=== PATIENT | female | born 1930 | race African-American/Black ===

== ENCOUNTER 2016-10-30 18:08 | Inpatient (IN) | payer OTHER ==
[2016-10-30] MEDS ORDERED: PROTONIX IV ONE (18:59)
[2016-10-30] MEDS ORDERED: SODIUM CHLORIDE 0.9% INJ ONE (18:59)
[2016-10-30] MEDS ORDERED: NS 500 ML IV ONE (18:59)
[2016-10-30] MEDS ORDERED: DILAUDID IV ONE (19:00)
[2016-10-30] MEDS ORDERED: ZOFRAN IV ONE (19:00)
--- NOTE | 2016-10-30 19:08 | PROVIDER DOCUMENTATION ---
HPI-Abdominal Pain/GI Problem - General Chief Complaint: Abdominal Pain Stated Complaint: ABD PAIN Time Seen by Provider: 10/30/16 18:51 Source: patient Allergies/Adverse Reactions: Patient Allergies Allergy/AdvReac Type Severity Reaction Status Date / Time No Known Allergies Allergy Verified 07/29/15 12:42 Home Medications: Home Medication List Medication Instructions Recorded Confirmed Last Taken Type Amlodipine [Norvasc] 10 mg PO QAM 08/13/12 10/30/16 10/30/16 08:00 History Aspirin 325 mg PO WLUNCH 08/13/12 10/30/16 10/30/16 11:00 History Calcium Citrate/Vitamin D 500 each PO WLUNCH 08/13/12 10/30/16 10/30/16 11:00 History [Citracal + D] Carvedilol [Coreg] 25 mg PO BID 08/13/12 10/30/16 10/30/16 08:00 History Meloxicam [Mobic] 15 mg PO WLUNCH 08/13/12 10/30/16 10/30/16 History Metformin [Glucophage] 1,000 mg PO WLUNCH 08/13/12 10/30/16 10/30/16 12:00 History Glipizide E.r. [Glucotrol Xl] 10 mg PO QAM 10/05/14 10/30/16 10/30/16 08:00 History Omeprazole [Prilosec] 20 mg PO QAM 10/05/14 10/30/16 10/30/16 08:00 History ATORVAstatin [Lipitor] 40 mg PO QHS 07/27/15 10/30/16 10/29/16 20:00 History Hydralazine [Apresoline] 50 mg PO TID 07/27/15 10/30/16 10/30/16 08:00 History BENAZEpril [Lotensin] 20 mg PO DAILY #30 tablet 08/04/15 10/30/16 10/30/16 08: 00 Rx Hydromorphone [Dilaudid] 2 mg PO Q4H PRN PRN #45 tablet 08/04/15 10/30/16 08:00 Rx - History of Present Illness-ABD Nature of Presenting Problems: 86 Y/O F presents to ED with ABD pain. Pt has a hx of dementia but fully functional. Pt states lower ABD pain for the past 3 days with increased constant RLQ this morning. Denies N/V. States BM today with a hx of constipation , and hx of . Abdominal Pain Onset Location: reports: RLQ, LLQ Pain Radiation: reports: no radiation Quality of Pain: reports: aching Severity in ED: reports: moderate Onset/Duration: reports: this morning Timing: reports: still present Associated Symptoms: reports: constipation. denies: diaphoresis, dizziness, EENT symptoms, fever/chills, nausea, syncope, vomiting Last BM: this morning Dark Stools Present?: reports: none noticed Rectal Pain: reports: none Review of Systems - Adult - REVIEW OF SYSTEMS - ADULT Constitutional: denies: chills, fever Eyes: reports: no symptoms reported Ears, Nose, Mouth & Throat: reports: no symptoms reported Cardiovascular: reports: no symptoms reported Respiratory: denies: cough, shortness of breath Gastrointestinal: reports: abdominal pain, constipation. denies: diarrhea, nausea, vomiting Genitourinary: reports: no symptoms reported Musculoskeletal: reports: no symptoms reported Integumentary: reports: no symptoms reported Neurological: reports: no symptoms reported Psychiatric: reports: no symptoms reported Endocrine: reports: no symptoms reported Hematologic/Lymphatic: reports: no symptoms reported Allergic/Immunologic: reports: no symptoms reported All Other Systems: Reviewed and Negative Past History - Adult - PAST MEDICAL HISTORY-ADULT Review of Records: reports: Old Records Reviewed, Nursing Assessment Review, Medications Reviewed, Social history reviewed & non-contributory. Cardiovascular: reports: cardiac disease, HTN, hyperlipidemia Respiratory: reports: COPD Endocrine/Immune: reports: Diabetes - PRIOR SURGERIES/PROCEDURES Surgical/Procedure History: reports: none - IMMUNIZATION STATUS Childhood Immunizations: See Nurse Assessment Flu Vaccine: See Nurse Assessment - SOCIAL HISTORY Smoking: cigarettes, less than 1 pack/day Substance Use: none/never Physical Exam-General - CONSTITUTIONAL General Appearance: alert, no apparent distress, obese - EYES Eyes: PERRL/EOMI, pink conjunctivae, fundi clear, no AV nicking - HEAD, EARS, NOSE, MOUTH & THROAT HENMT: normocephalic/atraumatic, moist mucous membranes, normal ENT inspection, TMs normal, pharynx normal - NECK Neck: non-tender, full range of motion, supple - RESPIRATORY Respiratory: chest non-tender, lungs clear, normal breath sounds - CARDIOVASCULAR Cardiovascular: normal peripheral pulses, regular rate, rhythm - GASTROINTESTINAL (ABDOMEN) Abdominal Exam: guarding (RLQ), tenderness (RLQ,LLQ), other (fullness LLQ) - MUSCULOSKELETAL Back Exam: normal inspection, no CVA tenderness, no vertebral tenderness Extremity: normal range of motion, non-tender, normal gait - SKIN Integumentary: normal color, normal turgor, warm/dry - NEUROLOGIC Neurologic: sas bi developer II-XII nml as tested - PSYCHIATRIC Psych/Mental Status: normal mood/affect Progress - PLAN OF CARE/RESULTS Progress/Plan/Lab Results: Laboratory Tests 10/30/16 10/30/16 10/30/16 20:00 20:00 20:00 WBC 5.66 RBC 4.38 Hgb 12.7 Hct 36.8 L MCV 84.0 MCH 29.0 MCHC 34.5 RDW Std Deviation 12.7 Plt Count 171 MPV 10.7 H Immature Gran % (Auto) 0.0 Neut % (Auto) 71.7 Lymph % (Auto) 14.5 L Lipscomb % (Auto) 10.6 H Eos % (Auto) 2.8 Baso % (Auto) 0.4 Immature Gran # (Auto) 0.00 Neut # (Auto) 4.06 Lymph # (Auto) 0.82 L Lipscomb # (Auto) 0.60 H Eos # (Auto) 0.16 Baso # (Auto) 0.02 Sodium 131 L Potassium 5.3 H Chloride 92 L Carbon Dioxide 23 L Anion Gap 16 BUN 15 Creatinine 1.2 H Estimated GFR/1.73 m2 52 BUN/Creatinine Ratio 13 Glucose 321 H POC Glucose Calculated Osmolality 276 Calcium 8.5 L Total Bilirubin 0.65 AST 22 ALT 12 Alkaline Phosphatase 107 H Troponin T < 0.010 Total Protein 6.6 Albumin 3.4 L Globulin 3.2 Albumin/Globulin Ratio 1.1 Amylase 60 Lipase 151 H Urine Source Urine Color Urine Turbidity Urine pH Ur Specific [place]uff Urine Protein Ur Glucose (Stick) Ur Ketones (Stick) Urine Blood Urine Nitrite Urine Bilirubin Urobilinogen Dipstick Urine Leukocytes Urine WBC (Auto) Urine RBC (Auto) U Epithel Cells (Auto) Urine Bacteria (Auto) 10/30/16 10/30/16 20:20 21:04 WBC RBC Hgb Hct MCV MCH MCHC RDW Std Deviation Plt Count MPV Immature Gran % (Auto) Neut % (Auto) Lymph % (Auto) Lipscomb % (Auto) Eos % (Auto) Baso % (Auto) Immature Gran # (Auto) Neut # (Auto) Lymph # (Auto) Lipscomb # (Auto) Eos # (Auto) Baso # (Auto) Sodium Potassium Chloride Carbon Dioxide Anion Gap BUN Creatinine Estimated GFR/1.73 m2 BUN/Creatinine Ratio Glucose POC Glucose 250 H Calculated Osmolality Calcium Total Bilirubin AST ALT Alkaline Phosphatase Troponin T Total Protein Albumin Globulin Albumin/Globulin Ratio Amylase Lipase Urine Source CLEAN CATCH Urine Color YELLOW Urine Turbidity CLEAR Urine pH 5.0 Ur Specific [place] 1.022 Urine Protein 30 A Ur Glucose (Stick) >1000 A Ur Ketones (Stick) 40 A Urine Blood NEGATIVE Urine Nitrite NEGATIVE Urine Bilirubin NEGATIVE Urobilinogen Dipstick NORMAL Urine Leukocytes NEGATIVE Urine WBC (Auto) <10 Urine RBC (Auto) <10 U Epithel Cells (Auto) <10 Urine Bacteria (Auto) NEGATIVE Orders Category Date Time Status Finger Stick Blood Sugar (ED) DIRECTED Care 10/30/16 18:58 Active Saline Loc DIRECTED Care 10/30/16 18:[address] ABD/PELVIS W/ IV CONT ONLY [CT] Stat Exams 10/30/16 18:58 Taken FLAT/UPRIGHT ABD/1 VIEW CHEST [RAD] Stat Exams 10/30/16 18:51 Taken AMYLASE [CHEM] Stat Lab 10/30/16 20:00 Completed CBC WITH ELECTRONIC DIFF [HEME] Stat Lab 10/30/16 20:00 Completed COMPREHENSIVE METABOLIC PANEL [CHEM] Stat Lab 10/30/16 20:00 Completed LIPASE [CHEM] Stat Lab 10/30/16 20:00 Completed TROPONIN T Stat Lab 10/30/16 20:00 Completed URINALYSIS [URINALYSIS] Stat Lab 10/30/16 21:04 Completed 0.9% Sodium Chloride Inj [Ns] 500 ml Med 10/30/16 18:59 Active IV 250 mls/hr Hydromorphone [Dilaudid] Med 10/30/16 19:00 Discontinued 0.5 mg IV NOW ONE Ondansetron [Zofran] Med 10/30/16 19:00 Discontinued 4 mg IV NOW ONE Pantoprazole [Protonix] Med 10/30/16 18:59 Discontinued 40 mg IV NOW ONE Sodium Chloride 0.9% Med 10/30/16 18:59 Discontinued 10 ml INJ NOW ONE EKG [EKG] Stat Ther 10/30/16 18:58 Ordered Vital Signs - 24 hr 10/30/16 10/30/16 18:47 20:40 Temperature 98.7 F Pulse Rate 95 H 77 Respiratory 20 14 Rate Blood Pressure 135/105 188/85 O2 Sat by Pulse 100 100 Oximetry - EKG 1 Time of EKG reading by physician:: 20:23 EKG Read and Signed by:: Corky Fierro EKG Interpretation (*Must complete 3 of following elements*): Abnormal Rate: 76 Rhythm: SR with premature atrial complexes Comments: Abnormal ECG - XRAY 1 XRAY Study: Chest Impression: Normal XRAY Interpretation: NAD 2 XRAY Study: Abdomen Impression: Abnormal XRAY Interpretation: Nonspecific increase constipation - CT/MRI 1 CT Study: Abdomen, Pelvis Impression: Abnormal (diffuse pancreatitis, severe constipation worst at cecum, normal appendix) CT Results: 2.6cm pancreatic head mass highly concerning for pancreatic cancer - CONSULTS/PCP/HOSPITALIST Notification #1 *Consult/PCP/Hospitalist*: Time Discussed: 21:48 Reason/Comments: Plan of Care #2 Consult: Time Discussed: 22:09 Reason/Comments: Admit Consult Disposition: Admit (Admit Accepted) Departure - Departure Time of Disposition Order: 21:46 DIAGNOSIS: Abdominal pain, Pancreatitis, Pancreatic mass Disposition: ADMITTED INPATIENT 09 Certified Medical Emergency: Emergent Condition: Stable Additional Instructions: ED Follow Up Instructions: You have been treated by a care provider in the Emergency Department. These instructions are being provided to you so you can have an understanding of how to care for yourself upon discharge. Upon discharge from the Emergency Department, you are responsible for making arrangements for follow-up care by a physician of your choice. Take all prescribed medications as directed. Return to the Emergency Department immediately for any new or worsening symptoms. You may call the Physician Referral phone number at [phone] to obtain a list of Physicians who are taking new patients. Referrals: None,PCP [Primary Care Provider] - Attestation - Scribe Verification/Attestation Scribe:: Claudette Castanon Acting as Scribe for:: Corky Fierro Scribe documention review:: This chart was documented by a scribe and accurately reflects the service the provider performed and the decisions made by the provider.
[2016-10-30 20:30] LABS: MANUAL DIFF NEEDED? NO
[2016-10-30 20:31] LABS: BASO% 0.4 % (0.0-0.8); EOS# 0.16 X1000 (0.0-0.7); EOS% 2.8 % (0.0-10.0); HEMATOCRIT 36.8 % (37.0-47.0); HEMOGLOBIN 12.7 g/dL (12.0-16.0); LYMPH# 0.82 X1000 (1.2-3.4); LYMPH% 14.5 % (20.5-51.1); MCHC 34.5 g/dL (33-37); MONO% 10.6 % (1.7-9.3); MPV 10.7 FL (7.4-10.4); NEUT% 71.7 % (42.2-75.2); PLT 171 X1000 (130-400); RBC 4.38 XMIL (4.2-5.4)
[2016-10-30 20:59] LABS: ALBUMIN 3.4 g/dL (3.5-5.0); CALCIUM 8.5 mg/dL (8.8-10.2); POTASSIUM 5.3 mmol/L (3.5-5.1); TOTAL BILIRUBIN 0.65 mg/dL (0.20-1.00); TOTAL PROTEIN 6.6 g/dL (6.3-8.3)
[2016-10-30 21:14] LABS: URINE MICRO REVIEW NEEDED? NO; URINE SOURCE CLEAN CATCH
[2016-10-30 21:21] LABS: BILIRUBIN URINE NEGATIVE (NEGATIVE); BLOOD URINE NEGATIVE (NEGATIVE); COLOR YELLOW; GLUCOSE URINE >1000 mg/dL (NEGATIVE); LEUKOCYTES URINE NEGATIVE (NEGATIVE); NITRITE URINE NEGATIVE (NEGATIVE); PROTEIN URINE 30 mg/dL (NEGATIVE); SP GRAVITY URINE 1.022; TURBIDITY URINE CLEAR (CLEAR); UROBILINOGEN URINE NORMAL (NORMAL)
[2016-10-30 21:22] LABS: UR EPITHELIAL CELLS <10 /HPF (<10); URINE BACTERIA NEGATIVE /HPF; URINE RBC <10 /HPF (<10); URINE WBC <10 /HPF (<10)
[2016-10-31] MEDS: NS 1,000 ML IV SCH ×3 (01:40→21:26)
--- NOTE | 2016-10-31 04:52 | HISTORY AND PHYSICAL ---
PRIMARY CARE PHYSICIAN: CHIEF COMPLAINT: Abdominal pain x1 day. HISTORY OF PRESENTING ILLNESS: An 86-year-old female with a history of diabetes mellitus type 2, hypertension, had presented to the emergency department with a 1-day history of having abdominal pain. She describes it as cramping mostly in epigastric region and states that she had some nausea. She states the pain was worsening and subsequently she had come to the emergency department. In the ER, she was evaluated. She had a CAT scan imaging done which did show that she did have pancreatitis and suspected pancreatic mass. Due to her presenting symptoms, it was thought that she would need hospitalization for further management. At the time of my examination, she denied any headaches, vision changes, fevers, chills, chest pain, shortness of breath or any weight changes but complained of abdominal pain, some mild nausea. PAST MEDICAL HISTORY: Include diabetes mellitus type 2, hypertension, hyperlipidemia. PAST SURGICAL HISTORY: None. ALLERGIES: No known drug allergies. CURRENT MEDICATIONS: As listed in MAR. SOCIAL HISTORY: Sixty pack years history of smoking. Admits to social alcohol use. Denies illicit drug use. FAMILY HISTORY: No history of coronary disease. REVIEW OF SYSTEMS: Twelve point systems is as in HPI. Other systems negative. PHYSICAL EXAMINATION: GENERAL: Cooperative, friendly elderly female. She is resting comfortably now. VITAL SIGNS: Temperature 98.7 degrees, pulse 95, respirations 20, blood pressure 135/105. She is saturating 100% on room air. HEENT: Atraumatic, normocephalic. Extraocular movements intact. PERRLA. NECK: No masses. CHEST: Clear to auscultation. CARDIOVASCULAR: Regular rate and rhythm. ABDOMEN: Soft. Positive bowel sounds. EXTREMITIES: No edema. NEUROLOGIC: She is awake, alert, oriented x3. GENITOURINARY: No bladder distention. SKIN: Warm. LABORATORIES AND STUDIES: WBC is 5.66, hemoglobin 12.7, hematocrit 36.8, platelets 171,000. Sodium 131, potassium 5.3, chloride 92, CO2 is 23, BUN is 15, creatinine is 1.2, glucose is 321. Lipase is 151. ASSESSMENT: An 86-year-old elderly female with a history of diabetes mellitus type 2 and hypertension presents to emergency department with 1-day history of abdominal pain. She is found to have on imaging a mass at the head of the pancreas and pancreatitis. She will need hospitalization for further management. 1. Acute pancreatitis. 2. Pancreatic mass. 3. Diabetes mellitus type 2. 4. Hypertension. PLAN: 1. We will admit patient to medical floor with telemetry. 2. We will keep patient NPO. Give her adequate pain control and antiemetics. 3. We will consult General Surgery for further evaluation of pancreatic mass. 4. Put patient on sliding scale insulin regimen. Monitor blood glucose. 5. Monitor blood pressure and resume antihypertensive agents. 6. Put patient on DVT prophylaxis with SCDs. 7. We will continue to follow and reassess.
--- NOTE | 2016-10-31 06:47 | Diag Imaging Result Document ---
PROCEDURE NAME: FLAT/UPRIGHT ABD/1 VIEW CHEST - 10/30/2016 FLAT AND UPRIGHT WITH CHEST, THREE VIEWS: FINDINGS: The lungs are well expanded. The heart is not enlarged. No pneumonia. No free air beneath the diaphragm. No bowel obstruction. No organomegaly. There is stool in the proximal colon. IMPRESSION: Mild constipation.
[2016-10-31] MEDS: HUMULIN R SUBQ SCH ×4 (07:01→21:26)
--- NOTE | 2016-10-31 07:35 | EKG Report ---
Test Performed on : 10/30/2016 8:23:11 PM Test Reason : CP Blood Pressure : / mmHG Vent. Rate : 076 BPM Atrial Rate : 076 BPM P-R Int : 144 ms QRS Dur : 076 ms QT Int : 388 ms P-R-T Axes : 079 017 062 degrees QTc Int : 436 ms Sinus rhythm. with premature atrial complexes. T wave abnormality, consider anterior ischemia Abnormal ECG When compared with ECG of 09-NOV-2014 16:36, Nonspecific T wave abnormality, improved in Lateral leads Unconfirmed Result
--- NOTE | 2016-10-31 07:55 | Diag Imaging Result Document ---
PROCEDURE NAME: CT ABD/PELVIS W/ IV CONT ONLY - 10/30/2016 CT ABDOMEN AND PELVIS WITH IV CONTRAST: COMPARISON: 07/29/2015. FINDINGS: There are multiple calcified granulomata in the liver and the spleen. There is inflammatory stranding surrounding the pancreas consistent with acute pancreatitis. There is a low-dense mass in the head of the pancreas measuring 2.6 x 1.9 cm axially that is highly concerning for carcinoma. The gallbladder appears normal. There is nonspecific nodular thickening involving the left adrenal gland that probably represents an adenoma statistically. It measures approximately 1.7 cm in the greatest axial dimension. There are several tiny renal hypodensities that probably represent tiny cysts. No definite lymphadenopathy is appreciated. Patchy stool is seen throughout the colon. The colon is mildly gas distended. There is no obstructive pattern. There is trace free fluid layering in the pelvis. The remainder of the solid viscera of the abdomen and pelvis and the remainder of the GI tract is essentially unremarkable. There are degenerative changes involving the spine and hips but there is nothing to indicate metastatic disease to the skeleton locally. IMPRESSION: 1. Acute pancreatitis. 2. Low-dense mass in the pancreatic head, highly concerning for carcinoma. 3. Other incidental/nonacute findings detailed above. [facility]
--- NOTE | 2016-10-31 11:33 | CONSULTATION ---
DATE OF CONSULTATION: 10/31/2016 REQUESTING PHYSICIAN: Hospitalist service. REASON FOR CONSULT: Concerning pancreatic mass. HISTORY OF PRESENT ILLNESS: This 86-year-old, female with a history diabetes mellitus type 2 and hypertension presented to the emergency department with a 1-day history of abdominal pain which she describes as cramping. She initially told the ER it was in the epigastric region but she is telling me it is more down in the bilateral lower quadrants. She was seen in the emergency department and had a CT scan that showed pancreatitis and a suspected pancreatic mass. She was admitted by the hospitalist service. Now she reports she is feeling somewhat better. Her pain has improved. I was asked to evaluate for the pancreatic mass. She denies any kind of pain like this in the past. PAST MEDICAL HISTORY: 1. Diabetes mellitus, type 2. 2. Hypertension. 3. Hyperlipidemia. PAST SURGICAL HISTORY: None. ALLERGIES: None reported. CURRENT MEDICATIONS: MAR reviewed. SOCIAL HISTORY: Reports smoking and social alcohol. No illicit drugs. FAMILY HISTORY: No major history of major cancers. REVIEW OF SYSTEMS: A full 10 point review of systems obtained, negative as specified in HPI. PHYSICAL EXAMINATION: Vital Signs: Patient is currently afebrile. Her vital signs have been stable. General: No acute distress. Alert and interactive female, looks stated age. HEENT: Normocephalic, atraumatic. Pupils equal, round, reactive to light. Mucous membranes moist. Oropharynx benign. No scleral icterus. Neck: Supple. Trachea midline. Cardiovascular: Regular rate and rhythm. Lungs: Grossly clear. Abdomen: Soft, only minimal tenderness to palpation in the bilateral lower quadrants. No peritonitis. Extremities: Moves all extremities. Neurologic: Grossly intact. Skin: No signs of jaundice. Vascular: All extremities perfused. LABORATORY DATA: CBC reviewed and grossly within normal limits. CMP reviewed. Of note, her alkaline phosphatase is 107. Her lipase is 151, albumin 3.4, creatinine is 1.2. ASSESSMENT/PLAN: An 86-year-old female with and multiple medical comorbidities presenting now with pancreatitis and possible pancreatic head mass. 1. Pancreatic head mass. At this time, I did review her CT scan. There is a question of a pancreatic head mass. At this time, we will order a CA-19-9, and get an MRI of the abdomen with contrast to evaluate this further. She may need actually an endoscopic ultrasound with biopsy to evaluate this further still. At this time given her age she is probably not an ideal candidate for any kind of surgical intervention, which would likely have to be a Whipple but at this time still unsure the etiology of the mass. It could represent even a small pseudocyst developing. She does have pancreatitis and would like to hold off on any surgical intervention. At this time. 2. Multiple medical comorbidities to be managed by the hospitalist service.
--- NOTE | 2016-10-31 13:26 | Diag Imaging Result Document ---
PROCEDURE NAME: MRI ABDOMEN W/WO CONTRAST - 10/31/2016 MRI OF THE ABDOMEN WITH AND WITHOUT IV CONTRAST: COMPARISON: No prior abdominal MRI is available for comparison. FINDINGS: The nodular thickening associated with the left adrenal gland seen on a recent CT exhibits signal dropout on out of phase imaging. This is consistent with an adrenal adenoma. Motion artifact somewhat limits evaluation of the pancreas. However, the known pancreatic head mass seen on a very recent CT is again identified and appears stable. As on CT , it is poorly enhancing. Again, this is suspicious for neoplasm. No hepatic masses can be identified. There are several small renal cysts. There is subtle inflammatory stranding around the pancreas consistent with acute pancreatitis but is more difficult to appreciate on MRI as compared to CT. The remainder of the visualized abdominal viscera and the abdominal segments of the GI tract are essentially unremarkable. IMPRESSION: 1. Pancreatic head mass as described that was also seen on the previous CT. 2. Known acute pancreatitis. 3. Not mentioned above, there is probably a small stone in the gallbladder lumen. However, the gallbladder is unremarkable otherwise. [facility]
[2016-10-31] MEDS ORDERED: NS 250 ML ONE (13:49)
[2016-10-31 13:57] LABS: INR 1.1; PROTIME 11.7 Seconds (9.2-11.7)
[2016-10-31] MEDS: APRESOLINE PO SCH ×3 (14:17→19:41)
[2016-10-31] MEDS: NORVASC PO SCH ×2 (15:29→15:30)
[2016-10-31] MEDS: DILAUDID IV PRN (16:25)
[2016-11-01] MEDS: NS 1,000 ML IV SCH ×3 (02:07→13:29)
[2016-11-01] MEDS: DILAUDID IV PRN ×4 (02:07→21:33)
[2016-11-01 06:11] LABS: MANUAL DIFF NEEDED? NO
[2016-11-01 06:20] LABS: BASO% 0.2 % (0.0-0.8); EOS# 0.18 X1000 (0.0-0.7); EOS% 3.6 % (0.0-10.0); HEMATOCRIT 32.5 % (37.0-47.0); HEMOGLOBIN 10.9 g/dL (12.0-16.0); LYMPH# 0.74 X1000 (1.2-3.4); LYMPH% 14.6 % (20.5-51.1); MCH 28.8 PG (27-31); MCHC 33.5 g/dL (33-37); MONO# 0.62 X1000 (0.11-0.59); MONO% 12.2 % (1.7-9.3); MPV 10.5 FL (7.4-10.4); NEUT% 69.4 % (42.2-75.2); PLT 153 X1000 (130-400); RBC 3.78 XMIL (4.2-5.4)
[2016-11-01 06:40] LABS: AGAP 17; BUN 9 mg/dL (8-22); CALCIUM 7.9 mg/dL (8.8-10.2); CHLORIDE 101 mmol/L (98-107); COSMO 281; POTASSIUM 3.7 mmol/L (3.5-5.1); SODIUM 139 mmol/L (136-145); TCO2 21 mmol/L (25-35)
[2016-11-01] MEDS: HUMULIN R SUBQ SCH ×4 (06:43→21:30)
[2016-11-01] MEDS: APRESOLINE PO SCH ×3 (13:05→17:41)
[2016-11-01] MEDS: NORVASC PO SCH ×2 (13:06→21:29)
--- NOTE | 2016-11-01 15:16 | PROGRESS NOTE ---
DATE: 11/01/2016 SUBJECTIVE: Patient feeling fine. Reports abdominal pain in the epigastric area that is well controlled with medication that she is using here. Denies any headache, nausea, vomiting. OBJECTIVE: Vital Signs: Temperature 98.3 degrees, heart rate 81, respiratory rate 20, blood pressure 204/76, O2 saturation 100% on room air. General Examination: This is a 86-year-old female lying in bed in no acute distress. HEENT: Head is normocephalic, atraumatic. Anicteric sclerae and pale conjunctivae. Mucous membranes moist. Neck: Supple. No JVD noted. No carotid bruits. No lymphadenopathy. No thyromegaly. Cardiovascular: S1, S2 heard. No murmurs, gallops or rubs. Regular rate and rhythm. Respiratory: Clear bilaterally to auscultation. No work of breathing or using accessory muscles. Abdomen: Soft, a little bit tender to palpation in the epigastric area. Extremities: No clubbing, cyanosis, edema. Peripheral pulses present in both legs. Neurological: Patient is alert and oriented x3. Able to move 4 extremities. Cranial nerves 2-12 grossly normal. LABORATORY DATA: White cell count 5.05, hemoglobin 10.9, hematocrit 32.5, platelets 153,000. BMP unremarkable, ALT, AST normal. ASSESSMENT AND PLAN: 1. Pancreatic mass. 2. Diabetes mellitus type 2. 3. Uncontrolled hypertension. Patient was admitted to hospital because of abdominal pain. Workup in the ER revealed a pancreatic mass. Dr. Huizar was consulted for possible surgery for pancreatic cancer but he decided to MRI of the abdomen which confirmed the mass. GI has been consulted but there is no note in the computer yet. We have consulted also Dr. Quin Quintana from Hematology/Oncology regarding further management. At this point we are going to continue pain medications. For hypertension we are going to restart home medications.
--- NOTE | 2016-11-01 17:35 | PROGRESS NOTE ---
DATE: 11/01/2016 The patient is currently lying in bed. She complains of epigastric pain. Her 2 grandsons are present at bedside. She denies any nausea, vomiting. Vital signs: Temperature 98.3 degrees, pulse of 81, respiratory rate 20, blood pressure 204/76, saturating 100% on room air. Body weight of 185 pounds. General Appearance: Moderately nourished, lying in bed, in no acute distress. HEENT: Pale conjunctivae. No icterus. Neck: Supple. Abdomen: Appears no rebound, no guarding. Extremities: No cyanosis, clubbing. Neurologic: She is awake and alert and answers all questions. LABS: Her hemoglobin and hematocrit is 10.9, 32.1. White count 5.07, platelet count of 153,000. INR 1.1. Sodium 131, potassium 5.3, chloride 92, bicarb 23, anion gap 16. BUN of 15, creatinine 1.2, glucose of 321, calcium is 8.5, total protein is 6.6, albumin 3.4, lipase of 151, amylase of 60, AST 22, ALT 12, alkaline phos 107, total bilirubin is 0.65. Blood glucose of 198. Urinalysis with positive protein, positive ketones. Imaging in the form of MRI of the abdomen showing a mass in the pancreatic head concerning for carcinoma, acute pancreatitis. Left adrenal adenoma. Patchy stool in the colon. Same findings were seen on the CT scan of the abdomen and pelvis. The measurements of the mass was 2.6 and 1.9 cm. IMPRESSION AND PLAN: 1. Pancreatic head mass. We will follow up on the CA-19-9. Dr. Huizar has seen the patient. The patient may benefit from CT-guided pancreatic head biopsy to confirm the diagnosis of malignancy. 2. Oncology has been consulted. Pending we will follow the recommendations. 3. Diabetes type 2, per the primary team. 4. Uncontrolled hypertension, per the primary team. 5. Will start the patient on liquid diet today. 6. GI prophylaxis. Protonix once daily. 7. Above plan discussed with the patient and family at bedside. I also discussed the plan of care with Dr. Schulte. [facility]
[2016-11-01] MEDS: LOTENSIN PO SCH (17:39)
--- NOTE | 2016-11-01 18:33 | CONSULTATION ---
DATE OF CONSULTATION: 10/31/2016 CHIEF COMPLAINT: Abdominal pain for the last couple of days. HISTORY OF PRESENT ILLNESS: An 86-year-old lady with history of type 2 diabetes mellitus presented to the emergency room with 2-day history of abdominal pain, cramping in the epigastric region associated with nausea and the pain gradually got worse and she came to the emergency room where she had a CT scan done which showed signs of pancreatitis and a pancreatic mass. She was admitted for further evaluation and management. PAST MEDICAL HISTORY: Diabetes mellitus type 2, hypertension, hyperlipidemia. PAST SURGICAL HISTORY: None. ALLERGIES: None. CURRENT MEDICATION: As listed in MAR. SOCIAL HISTORY: Six pack years history of smoking. Occasional social alcohol. No illicit drugs. FAMILY HISTORY: Negative for pancreatic or GI malignancy. REVIEW OF SYSTEMS: Twelve point system as in HPI. Otherwise negative. PHYSICAL EXAMINATION: Generally: Cooperative, friendly elderly lady resting comfortably in no acute distress. She got some pain medicine by the time I seen. Vital Signs: Temperature 98.7 degrees, pulse 95, respirations 20, blood pressure 135/100, O2 saturation 100% on room air. HEENT: PERRLA. No scleral icterus. No conjunctival pallor. Neck: Supple. Trachea midline. Heart: Normal first and second heart sounds. Lungs: Clear. Abdomen: Tender in the epigastric area. Bowel sounds are present. Appears to be slightly hypoactive. Extremities: No edema, cyanosis, clubbing. Neurological: Awake, alert and oriented. LABORATORY STUDIES: White count 5.66, hemoglobin 12.7, hematocrit 36.8, platelets 171,000. Sodium 131, potassium 5.3, chloride 92, CO2 23, BUN 15, and creatinine 1.2, glucose 321. Amylase normal. Lipase slightly high at 151. ASSESSMENT AND PLAN: This 86-year-old lady presents with symptoms of acute pancreatitis however CT scan showed suggestion of pancreatic mass and malignancy. Her liver function tests are otherwise normal. Alkaline phosphatase is slightly high. 1. Acute pancreatitis. 2. Pancreatic mass. 3. Diabetes mellitus type 2. 4. Hypertension. 5. Hyperlipidemia. RECOMMENDATION: Continue management with fluids, gut rest, analgesics. Patient is on NPO. She is on insulin instead of oral antidiabetic medicine. The patient is on DVT prophylaxis with SCD. We will continue to follow. We will see and may suggest an MRCP or CT-guided MRCP to see the bile duct and CT-guided biopsy of the pancreatic mass. I talked to the family. She is 86. I am not sure whether we should pursue the pancreatic mass or just handle acute pancreatitis for now. Will decide further management depending on what the family and herself wants to do.
[2016-11-01] MEDS: SODIUM CHLORIDE 0.9% INJ SCH (21:28)
[2016-11-01] MEDS: PROTONIX IV SCH (21:29)
[2016-11-01] MEDS: PERICOLACE PO SCH (21:29)
[2016-11-01] MEDS: COREG PO SCH (21:29)
[2016-11-02] MEDS: HUMULIN R SUBQ SCH ×4 (06:57→21:50)
[2016-11-02] MEDS: DILAUDID IV PRN ×2 (07:39→12:36)
[2016-11-02] MEDS: NS 1,000 ML IV SCH (12:04)
[2016-11-02] MEDS: NORVASC PO SCH ×2 (12:06→21:45)
[2016-11-02] MEDS: COREG PO SCH ×2 (12:06→21:44)
[2016-11-02] MEDS: LOTENSIN PO SCH (12:07)
[2016-11-02] MEDS: APRESOLINE PO SCH ×3 (12:07→21:45)
[2016-11-02] MEDS: PERICOLACE PO SCH ×2 (12:07→21:44)
[2016-11-02] MEDS: NORCO-7.5 PO ONE (13:07)
[2016-11-02] MEDS ORDERED: DILAUDID IV PRN (14:04)
--- NOTE | 2016-11-02 14:44 | PROGRESS NOTE ---
DATE: 11/02/2016 SUBJECTIVE: Patient reports mild abdominal pain that is not completely responding to medications. Denies any vomiting or fever or chills. OBJECTIVE: Vital Signs: Temperature 98.7, heart rate 84, respiratory rate 18, blood pressure 182/75, O2 saturation 94% on room air. General Examination: This is an 86-year-old female lying in bed, in no acute distress. HEENT: Head is normocephalic, atraumatic. Anicteric sclerae. Pale conjunctivae. Mucous membranes moist. Neck: Supple. No JVD noted. No carotid bruits. No lymphadenopathy. No thyromegaly. Cardiovascular: S1, S2 heard. No murmurs, gallops, or rubs. Regular rate and rhythm. Respiratory: Clear bilaterally to auscultation. No work of breathing or using accessory muscles. Abdomen: Soft. A little bit tender to palpation in the epigastric area. Bowel sounds present. No organomegaly. Extremities: No clubbing, cyanosis, or edema. Peripheral pulses present in both legs. Neurological: Patient is alert and oriented x3. Able to move 4 extremities. Cranial nerves 2 through 12 grossly normal. LABORATORY DATA: Hemoglobin 10.9, hematocrit 32.5. BMP unremarkable. CA-19-9 is 374 and normal is up to 55. ASSESSMENT: 1. Pancreatic mass. 2. Acute pancreatitis. 3. Diabetes mellitus type 2. 4. Uncontrolled hypertension. PLAN: Patient was admitted to the hospital because of abdominal pain. She was found to have a mass. General surgery has evaluated this patient. They are not planning to do any procedure now. GI thinks this patient can benefit from a CT-guided biopsy. We are still waiting for input from oncology. We will follow their recommendations. At this time, this patient is on a clear liquid diet and she is tolerating that. Depending upon oncology recommendations will see if the family desires to proceed with biopsy or not. If not, she can be discharged tomorrow.
[2016-11-02] MEDS: NORCO-7.5 PO SCH (18:37)
--- NOTE | 2016-11-02 20:11 | PROGRESS NOTE ---
DATE: 11/02/2016 SUBJECTIVE: Patient complains of abdominal pain in epigastrium region. She is only on minor relief and she denies any nausea vomiting, fever, chills. OBJECTIVE: Vital signs: Temperature 98.2, pulse 89, respiratory rate 18, blood pressure 142/70 saturating 98% room air. General appearance: Moderate built lying in bed in no acute distress. HEENT: Pale conjunctivae. No icterus. Neck: Supple. Abdomen: Discomfort the epigastrium, no rebound or guarding. Extremities: No cyanosis, clubbing. Neuro: She is alert and awake answers questions. She has history mild dementia. LABS: Her CA19-9 was 374. IMPRESSION AND PLAN: 1. Pancreatic head mass. 2. Pancreatitis. 3. Type 2 diabetes. 4. Hypertension uncontrolled. 5. Epigastric pain. RECOMMENDATIONS: Dr. Quin Quintana was consulted she has seen the patient. Dr. Elizondo is also on board. The best conclusive test to evaluate the pancreatic head mass will be a CT guided biopsy per the radiologist. We will await the recommendations from the oncology team and the surgery team. In the meanwhile will continue on liquid diet. Will keep her on GI prophylaxis. We will start on bowel regimen for some constipation. We will need to address the pain control per the primary team. The above plan of care was discussed with the patient's family at bedside. All questions answered.
[2016-11-02] MEDS: SODIUM CHLORIDE 0.9% INJ SCH (21:44)
[2016-11-02] MEDS: PROTONIX IV SCH (21:44)
--- NOTE | 2016-11-02 21:46 | CONSULTATION ---
DATE OF CONSULTATION: 11/02/2016 SOURCE OF CONSULTATION: 11/02/2016. REASON FOR CONSULTATION: Pancreatic mass. REQUESTING PHYSICIAN: Patient seen in consultation at the request of Oh Giraldo MD. HISTORY OF PRESENT ILLNESS: Ms. Gomez is an 86-year-old, who presented to the emergency room on the date of admission with abdominal pain. Initial workup showed acute pancreatitis on CT along with a 2.6 x 1.9 cm pancreatic head mass. The patient denies any history of pancreatitis. MRI of abdomen was performed workup which confirmed pancreatitis and the 2.6 x 1.9 cm pancreatic head mass as well one small gallstone. Patient continues to have abdominal pain that is controlled. The patient denies fevers or chills. She has had some mild nausea, but no vomiting since the hospital admission. PAST MEDICAL HISTORY: Diabetes, hypertension, hyperlipidemia, MGUS. ALLERGIES: None. MEDICATIONS: Reviewed per the chart. FAMILY MEDICAL HISTORY: Noncontributory. SOCIAL HISTORY: No current tobacco, alcohol, or illicit drugs. Patient's family members are at the bedside during consultation. REVIEW OF SYSTEMS: Complete review of systems negative except as per HPI. Review of systems is primarily obtained per the family. PHYSICAL EXAMINATION: General: This is a well-developed, well-nourished, elderly woman in no acute distress. Eyes: Sclerae anicteric. Cardiovascular: Regular rate and rhythm. Normal S1, S2. No murmurs, rubs, or gallops. Pulmonary: Lungs clear auscultation bilaterally without wheezes, rales, or rhonchi. Abdomen: Obese, soft. Mildly diffusely tender. Nondistended with normoactive bowel sounds. Extremities: No clubbing, cyanosis. Trace bilateral pedal edema. Neurologic: Alert and oriented x3. No focal deficits. Moves all extremities well. LABORATORY DATA: Lipase 165, CA 19-9, 374. IMAGING: As per HPI. ASSESSMENT AND PLAN: This is an 86-year-old, female with: 1. Pancreatic head mass: I had a long discussion with the patient's family today, discussing the possibility of pancreatic cancer. Endoscopic ultrasound and fine-needle aspiration can be pursued at a future time if they decide to proceed. We discussed that she is not a candidate for a Whipple procedure. We discussed possible treatment options for pancreatic cancer. 2. Acute pancreatitis: Continue supportive care at this time. Pain is well controlled. Continue to monitor. 3. Diabetes: She continues on sliding scale insulin per hospitalist. Continue to monitor. 4. Monoclonal gammopathy of undetermined significance: Follow up as an outpatient. Thank you this consultation and the opportunity to participate in the care of this patient. We will follow along and leave further recommendations as her hospital course dictates.
[2016-11-02] MEDS: MIRALAX PO SCH (23:18)
[2016-11-03] MEDS: NORCO-7.5 PO SCH ×4 (01:21→18:51)
[2016-11-03] MEDS: NS 1,000 ML IV SCH (06:17)
[2016-11-03] MEDS: HUMULIN R SUBQ SCH ×4 (06:19→23:08)
--- NOTE | 2016-11-03 06:57 | PROGRESS NOTE ---
DATE: 11/03/2016 SUBJECTIVE: Patient's pain has improved. Reviewed notes from consultants this weekend. Again, the patient is without much abdominal pain at this time. OBJECTIVE: Vital Signs: Patient is currently afebrile. Her vital signs have been stable. General Examination: No acute distress. Alert, interactive, female, looks stated age. HEENT: Normocephalic, atraumatic. Pupils equal, round, reactive to light. Mucous membranes moist. Oropharynx benign. No scleral icterus. Lungs: Grossly clear. Cardiovascular: Regular rate and rhythm. Trachea midline. Abdomen: Soft, nontender at this time. Extremities: Moves all extremities well. Neurologic: Grossly intact. Skin: No signs of jaundice. Vascular: All extremities perfused. Laboratory: Of note, patient's CA-19-9 is 374. ASSESSMENT/PLAN: An 86-year-old, female with a pancreatic head mass and acute pancreatitis. 1. Pancreatic head mass. At this time, all indication with imaging and laboratory suggests that it is cancer. There has been discussion about the options for obtaining a biopsy. I think that an endoscopic ultrasound would likely be the safest and likely highest success rate but this could be done as an outpatient. I agree that the patient is not a surgical candidate for a Whipple procedure and we will defer other options per discussion with Dr. Quintana. 2. Acute pancreatitis. At this time, I think patient has resolved from her pancreatitis. I think she can be started on clear liquids but we will defer to the other teams pending their options for biopsies. 3. Multiple medical comorbidities, being currently managed by the hospitalist service.
[2016-11-03] MEDS: MIRALAX PO SCH ×2 (10:14→20:51)
[2016-11-03] MEDS: APRESOLINE PO SCH ×3 (10:15→16:20)
[2016-11-03] MEDS: NORVASC PO SCH ×2 (10:15→20:53)
[2016-11-03] MEDS: LOTENSIN PO SCH (10:16)
[2016-11-03] MEDS: PERICOLACE PO SCH ×2 (10:16→20:54)
[2016-11-03] MEDS: COREG PO SCH ×2 (10:16→20:53)
[2016-11-03] MEDS: NORCO-7.5 PO ONE (13:31)
[2016-11-03 14:18] LABS: MANUAL DIFF NEEDED? NO
[2016-11-03 14:41] LABS: AGAP 13; ALBUMIN 2.7 g/dL (3.5-5.0); ALKALINE PHOSPHATASE 84 U/L (32-104); AMYLASE 35 U/L (20-200); BUN 6 mg/dL (8-22); CALCIUM 7.6 mg/dL (8.8-10.2); CHLORIDE 99 mmol/L (98-107); COSMO 277; GOT 12 U/L (10-30); GPT 10 U/L (10-36); LIPASE 53 U/L (13-60); POTASSIUM 3.6 mmol/L (3.5-5.1); SODIUM 133 mmol/L (136-145); TCO2 21 mmol/L (25-35); TOTAL BILIRUBIN 0.38 mg/dL (0.20-1.00); TOTAL PROTEIN 5.4 g/dL (6.3-8.3)
[2016-11-03 15:03] LABS: BASO% 0.3 % (0.0-0.8); EOS# 0.18 X1000 (0.0-0.7); EOS% 5.2 % (0.0-10.0); HEMOGLOBIN 10.3 g/dL (12.0-16.0); LYMPH# 0.47 X1000 (1.2-3.4); LYMPH% 13.6 % (20.5-51.1); MCH 28.5 PG (27-31); MCHC 33.2 g/dL (33-37); MCV 85.9 FL (81-99); MONO# 0.67 X1000 (0.11-0.59); MONO% 19.4 % (1.7-9.3); MPV 10.7 FL (7.4-10.4); NEUT% 61.5 % (42.2-75.2); PLT 169 X1000 (130-400); RBC 3.61 XMIL (4.2-5.4)
--- NOTE | 2016-11-03 15:32 | PROGRESS NOTE ---
DATE: 11/03/2016 SUBJECTIVE: The patient is currently resting in bed. Abdominal pain is improving. The family is present at bedside. We spoke to them in detail. I reviewed the notes from Dr. Huizar, who is recommending endoscopic ultrasound with biopsy of the pancreatic head mass at an outside facility. We agree with that. I also discussed the plan of care with Dr. Morgan. OBJECTIVE: Vital signs: Temperature 98.5 degrees, pulse rate of 77, respiratory rate 16, blood pressure 113/61, saturating 97% on room air. General Appearance: Moderately nourished, lying in bed, in no acute distress. HEENT: Mild pallor. No icterus. Neck: Supple. Abdomen: Mild discomfort in epigastric region. No rebound or guarding. Extremities: No cyanosis, clubbing . Neurological: Neurological-harp; she is awake and alert. Answers the questions. LABS: Her blood glucose was 289. No other labs were checked. IMPRESSION AND PLAN: 1. Pancreatic head mass. 2. Pancreatitis. 3. Type 2 diabetes. 4. Hypertension. 5. Mild dementia. RECOMMENDATIONS: We agree with getting an endoscopic ultrasound and pancreatic head biopsy at an outside facility. This [facility] be done at [facility] or [facility]. Discussed with Dr. Morgan and family. Will follow up on Dr. Quin Quintana's recommendations and make the plan. The patient is feeling better today. We will check amylase and lipase maybe tomorrow morning. We will continue on GI prophylaxis. We will keep her on bowel regimen. The pain medicines were discontinued with the primary team. The above plan discussed the patient and family at bedside, as well as another family by phone. I also discussed the plan of care with Dr. Morgan. [facility] CENT[facility]ori
--- NOTE | 2016-11-03 17:45 | PROGRESS NOTE ---
DATE: 11/03/2016 SUBJECTIVE: Patient reports that abdominal pain is getting better with treatment she is getting, and she tolerated clear liquid diet that she was given this morning. No nausea or vomiting. OBJECTIVE: Vital Signs: Temperature 97.5 degrees, heart rate 77, respiratory rate 16, blood pressure 139/61, O2 saturation 97% on room air. General: This is an 86-year-old female lying in bed, in no acute distress. HEENT: Head is normocephalic, atraumatic. Anicteric sclerae and pale conjunctivae. Mucous membranes moist. Neck: Supple. No JVD noted. No carotid bruits. No lymphadenopathy. No thyromegaly. Cardiovascular: S1, S2 heard. No murmurs, gallops, or rubs. Regular rate and rhythm. Respiratory: Clear bilaterally to auscultation. No work of breathing or using accessory muscles. Abdomen: Soft, a little bit tender to palpation in the epigastric area, but bowel sounds are present. No organomegaly. Extremities: No clubbing, cyanosis, or edema. Peripheral pulses present in both legs. Neurological: Patient is alert and oriented x3. Able to move 4 extremities. Cranial nerves 2-12 grossly normal. LABORATORY DATA: White cell count 3.45, hemoglobin 10.3, hematocrit 31, platelets 169,000. BMP unremarkable except glucose 335. ASSESSMENT AND PLAN: 1. Pancreatic mass. 2. Acute pancreatitis. 3. Diabetes type 2. 4. Uncontrolled hypertension. PLAN: Patient was admitted to the hospital because of abdominal pain and a CT of the abdomen revealed pancreatitis and also pancreatic mass. Evaluated by Dr. Huizar. He thinks that this patient is not a good candidate for any possible Whipple surgery. He requested a magnetic resonance imaging of the abdomen which basically confirmed this pancreatic mass that is most likely cancer. He recommends an endoscopic ultrasound for possibly a way to get a biopsy. Gastroenterology Dr. Shepherd is also okay with that procedure, although also it is fine to get a computed tomography-guided biopsy, too. Dr. Arnold from Oncology has evaluated this patient and has gone over with them what the possibilities are for this patient. Apparently, Dr. Rivera is also going to take over the patient. We will discuss with him what would be the best option for this patient. By now, regarding acute pancreatitis, the pain is definitely much better controlled, and we are going to advance her diet as tolerated. Tomorrow we are going to check with Gastroenterology and also with Oncology, Dr. Rivera about what will be the next step in the management of this patient, and in case he decided to pursue any procedure, we will see if that can be done as an outpatient or needs to be done here in the hospital. If no procedure required at this time tomorrow, the patient will be discharged home.
[2016-11-03] MEDS: PROTONIX IV SCH (20:52)
[2016-11-03] MEDS: SODIUM CHLORIDE 0.9% INJ SCH (20:53)
[2016-11-04] MEDS: NORCO-7.5 PO SCH ×4 (01:33→13:35)
[2016-11-04] MEDS: NS 1,000 ML IV SCH ×2 (02:57→03:31)
[2016-11-04] MEDS: HUMULIN R SUBQ SCH ×2 (06:47→11:26)
[2016-11-04] MEDS: PERICOLACE PO SCH (09:29)
[2016-11-04] MEDS: LOTENSIN PO SCH (09:30)
[2016-11-04] MEDS: NORVASC PO SCH (09:30)
[2016-11-04] MEDS: APRESOLINE PO SCH ×2 (09:31→13:36)
[2016-11-04] MEDS: COREG PO SCH (09:31)
[2016-11-04] MEDS: MIRALAX PO SCH (09:42)
[2016-11-04 10:11] LABS: MANUAL DIFF NEEDED? NO
[2016-11-04 10:15] LABS: BASO% 0.3 % (0.0-0.8); EOS# 0.24 X1000 (0.0-0.7); EOS% 6.5 % (0.0-10.0); HEMOGLOBIN 9.7 g/dL (12.0-16.0); LYMPH# 0.71 X1000 (1.2-3.4); LYMPH% 19.1 % (20.5-51.1); MCH 28.8 PG (27-31); MCHC 33.4 g/dL (33-37); MCV 86.1 FL (81-99); MONO# 0.69 X1000 (0.11-0.59); MONO% 18.6 % (1.7-9.3); MPV 10.3 FL (7.4-10.4); NEUT% 55.5 % (42.2-75.2); PLT 158 X1000 (130-400); RBC 3.37 XMIL (4.2-5.4)
[2016-11-04 10:44] LABS: AGAP 11; BUN 5 mg/dL (8-22); CALCIUM 7.4 mg/dL (8.8-10.2); CHLORIDE 107 mmol/L (98-107); COSMO 280; POTASSIUM 3.1 mmol/L (3.5-5.1); SODIUM 140 mmol/L (136-145); TCO2 22 mmol/L (25-35)
--- NOTE | 2016-11-04 10:56 | PROGRESS NOTE ---
DATE: 11/04/2016 SUBJECTIVE: No major issues. She was started on a diet. She is not having any pain, reviewed notes. Looks as though patient will be discharged soon with outpatient follow up for endoscopic ultrasound done in [place]. OBJECTIVE: Vital Signs: Patient is currently afebrile. Her vital signs stable. General exam: No acute distress. Alert, interactive, female, looks stated age. HEENT: Normocephalic, atraumatic. Pupils equal, round, reactive to light. Mucous membranes moist. Oropharynx benign. Neck: Supple. Trachea midline. Cardiovascular: Regular rate and rhythm. Lungs: Grossly clear. Abdomen: Soft, nontender, nondistended. Extremities: Moves all extremities well. Neurologic: Grossly intact. Skin: No signs of jaundice. Vascular: All extremities perfused. LABORATORY: None for today. ASSESSMENT AND PLAN: An 86-year-old, female with acute pancreatitis and pancreatic head mass. 1. Acute pancreatitis: At this time, seems to be clinically resolved. She is tolerating a diet, and likely be discharged home from a pancreatitis standpoint. 2. Pancreatic head mass. At this time, would recommend outpatient followup with me after she has had her endoscopic ultrasound with GI gastroenterology in [place]. At that time, can discuss the need for surgical intervention, but I suspect the patient would not tolerate a Whipple procedure given her age and other medical comorbidities.
[2016-11-04 10:57] VITALS: BP 118/60
[2016-11-04] MEDS ORDERED: NORCO-5 PO PRN (13:50)
--- NOTE | 2016-11-05 09:09 | DISCHARGE SUMMARY ---
ADMISSION DATE: 10/31/2016 DISCHARGE DATE: 11/04/2016 CONSULTATIONS: 1. Dr. Don Huizar with general surgery. 2. Dr. Medel with gastroenterology. PERTINENT PROCEDURES: 1. Abdominal MRI showed a pancreatic head mass, nonacute pancreatitis, small stone in the gallbladder lumen; however, the gallbladder is unremarkable. 2. Abdomen and pelvis CT showed acute pancreatitis, low dense mass in the pancreatic head highly concerning for carcinoma. DISCHARGE DIAGNOSES: 1. Acute pancreatitis, resolved, tolerating diet. 2. Pancreatic head mass. The patient will follow up outpatient with Dr. Huizar after she has had an endoscopic ultrasound with gastroenterology in [place]. After that, they can discuss the need for surgical intervention but Dr. Huizar suspects that the patient would not tolerate a Whipple procedure given her age and other medical comorbidities. 3. Diabetes mellitus type 2. 4. Uncontrolled hypertension. HOSPITAL COURSE: Ms. Gomez is an 86-year-old, female who does carry a past medical history of diabetes, hypertension, and hyperlipidemia. Reported to the ED because of abdominal pain. A CT of the abdomen revealed acute pancreatitis and a pancreatic mass. She was evaluated by Dr. Huizar. He felt that she was not a good candidate for a Whipple procedure given her age and comorbidity. The patient was made NPO. She was also assessed by Dr. Medel. She was also on IV fluids. We did get an MRI of the abdomen which basically confirms the pancreatic mass that most likely is cancer. Dr. Huizar recommended an endoscopic ultrasound for possibility of a way to get a biopsy. Dr. Quintana with oncology also evaluated the patient and has gone over with them what the possibilities are for the patient. The patient's pain was well controlled with IV medication. We were able to advance her diet. GI along with oncology and surgery have decided that the patient will need an endoscopic ultrasound that will be performed in [place] to get a biopsy. Dr. Rivera is going to set this study up. His office will call with the appointment and Dr. Rivera will follow up with the patient after the procedure, as well as Dr. Huizar to discuss any surgical options. Patient did tolerate her GI soft diet. Dr. Morel assessed her and feels she is appropriate for discharge. VITAL SIGNS ON DISCHARGE: Temperature is 97.4 degrees, heart rate 79, respirations 16, blood pressure 118/60, O2 is 98% on room air. Her acute pancreatitis has completely resolved. DISCHARGE MEDICATIONS: 1. Citracal plus D 500 each p.o. with lunch. 2. Coreg 25 mg p.o. b.i.d. 3. Glucophage 1000 mg p.o. with lunch. 4. Norvasc 10 mg p.o. q.a.m. 5. Glucotrol-XL 10 mg p.o. q.a.m. 6. Prilosec 20 mg p.o. q.a.m. 7. Apresoline 50 mg p.o. t.i.d. 8. Lotensin 20 mg p.o. daily. 9. MiraLAX 17 g p.o. b.i.d. 10. [place] 7.5 one each p.o. q.6 hours. 11. Cele-Colace 2 mg p.o. b.i.d. FOLLOWUP: Patient will follow up with Dr. Rivera as well as GI in [place]. He will call and provide the appointment time to the patient. The patient can return to the ED for any worsening of symptoms. Discharge time, 30 minutes. Dictated by RUSTY Blair for Russ Villaseñor MD
== END 2016-11-04 15:19 | disposition home or self-care (01) | DRG 439 ==
LOC: ED 18:08 → 4N 10-31 00:13
PROVIDERS: ATTEND Internal Medicine
DX: K85.90 Acute pancreatitis without necrosis or infection, unspecified (principal); C25.0 Malignant neoplasm of head of pancreas; D47.2 Monoclonal gammopathy; E11.9 Type 2 diabetes mellitus without complications; I10 Essential (primary) hypertension; E78.5 Hyperlipidemia, unspecified; F17.210 Nicotine dependence, cigarettes, uncomplicated; Z79.899 Other long term (current) drug therapy; Z79.84 Long term (current) use of oral hypoglycemic drugs; Z79.82 Long term (current) use of aspirin
CPT/HCPCS: 36569; 74022; 74177; 74183; 80048; 80053; 81001; 82150; 82948; 83690; 84484; 85025; 85610; 86301; 93005; 96374; 96375; C9113; J1170; J2405; J7030; J7040; J7050; Q9967; S0164

== ENCOUNTER 2016-11-21 12:46 | Inpatient (IN) ==
[2016-11-21] MEDS ORDERED: NS 1,000 ML IV ONE (13:12)
[2016-11-21] MEDS ORDERED: ZOFRAN IV ONE (13:13)
[2016-11-21] MEDS ORDERED: MORPHINE IV ONE ×2 (13:13→16:23)
[2016-11-21 14:34] LABS: URINE MICRO REVIEW NEEDED? NO; URINE SOURCE CLEAN CATCH
[2016-11-21 14:39] LABS: BILIRUBIN URINE MODERATE (NEGATIVE); BLOOD URINE NEGATIVE (NEGATIVE); COLOR YELLOW; GLUCOSE URINE 1000 mg/dL (NEGATIVE); LEUKOCYTES URINE MODERATE (NEGATIVE); NITRITE URINE NEGATIVE (NEGATIVE); PH URINE 5.5; PROTEIN URINE 30 mg/dL (NEGATIVE); SP GRAVITY URINE 1.025; TURBIDITY URINE CLEAR (CLEAR); UR EPITHELIAL CELLS <10 /HPF (<10); URINE BACTERIA 3+ /HPF; URINE CULTURE NEEDED? YES; URINE RBC <10 /HPF (<10); UROBILINOGEN URINE NORMAL (NORMAL)
[2016-11-21] MEDS ORDERED: ROCEPHIN 1 GM/NS 1 GM/50 ML IVPB IV ONE (14:44)
--- NOTE | 2016-11-21 15:03 | PROVIDER DOCUMENTATION ---
This chart was entered by Oneida Kay Scribe, acting as scribe for Do Gray MD. HPI-Abdominal Pain/GI Problem - General Chief Complaint: Abdominal Pain Stated Complaint: ABD PAIN Time Seen by Provider: 11/21/16 12:55 Source: patient, family (son) Allergies/Adverse Reactions: Patient Allergies Allergy/AdvReac Type Severity Reaction Status Date / Time No Known Allergies Allergy Verified 11/21/16 13:51 Home Medications: Home Medication List Medication Instructions Recorded Confirmed Last Taken Type Amlodipine [Norvasc] 10 mg PO QAM 08/13/12 10/30/16 10/30/16 08:00 History Calcium Citrate/Vitamin D 500 each PO WLUNCH 08/13/12 10/30/16 10/30/16 11:00 History [Citracal + D] Carvedilol [Coreg] 25 mg PO BID 08/13/12 10/30/16 10/30/16 08:00 History Metformin [Glucophage] 1,000 mg PO WLUNCH 08/13/12 10/30/16 10/30/16 12:00 History Glipizide E.r. [Glucotrol Xl] 10 mg PO QAM 10/05/14 10/30/16 10/30/16 08:00 History Omeprazole [Prilosec] 20 mg PO QAM 10/05/14 10/30/16 10/30/16 08:00 History Hydralazine [Apresoline] 50 mg PO TID 07/27/15 10/30/16 10/30/16 08:00 History BENAZEpril [Lotensin] 20 mg PO DAILY #30 tablet 08/04/15 10/30/16 10/30/16 08: 00 Rx Hydrocodone/APAP 7.5 mg/325 mg 1 each PO Q6H #30 tablet 11/04/16 Unknown Rx [[place]-7.5] Polyethylene Glycol 3350 [Miralax] 17 gm PO BID #60 powder, packet 11/04/16 Unknown Rx Sennosides/Docusate Sodium 2 each PO BID #60 tablet 11/04/16 Unknown Rx [Pericolace] - History of Present Illness-ABD Nature of Presenting Problems: Pt is 86 y/o F presents to the ED with abdominal pain. Pt's son states Pt was diagnosed yesterday with pancreatic cancer. Pt's son states went to Dr. Rivera' s office yesterday for IV morphine. Pt's son states Pt's pain meds are not helping. Pt's son states replacing fentanyl patch this am and give Pt norco and dilaudid and Pt still states pain is present. Pt state N and denies V. Pt's son states he does not want a CT scan or blood work done. Pt's son states he just wants Pt to have IV fluids, pain meds and meds for N. Abdominal Pain Onset Location: reports: generalized abdomen Pain Radiation: reports: no radiation Quality of Pain: reports: aching Severity in ED: reports: mild Onset/Duration: reports: 3 days ago Timing: reports: still present, intermittent, getting worse Activities at Onset: reports: light activity Exposure to sick contacts?: No Modifying Factors: improves with: nothing Associated Symptoms: reports: nausea, weakness. denies: anxiety, arm pain, back /neck pain, chest pain, constipation, cough, diaphoresis, diarrhea, dizziness, EENT symptoms, fatigue, fever/chills, genitourinary problems, headaches, heartburn, joint pain, loss of appetite, malaise, muscle aches, sinus congestion /drainage, rash, seizure, shortness of breath, sensory/motor loss, pain with inspiration, swelling/mass in abdomen, syncope, vomiting, trouble walking Last BM: unsure Dark Stools Present?: reports: none noticed Rectal Bleeding: reports: none Rectal Pain: reports: none Emesis Description: reports: none Bruising or Bleeding Gums?: No Similar Symptoms Previously?: Yes Recently seen or treated by another doctor?: Yes Review of Systems - Adult - REVIEW OF SYSTEMS - ADULT Constitutional: reports: no symptoms reported Eyes: reports: no symptoms reported Ears, Nose, Mouth & Throat: reports: no symptoms reported Cardiovascular: reports: no symptoms reported Respiratory: reports: no symptoms reported Gastrointestinal: reports: abdominal pain, nausea. denies: diarrhea, vomiting Genitourinary: reports: no symptoms reported Musculoskeletal: reports: muscle weakness. denies: bone pain, joint pain, neck pain Integumentary: reports: no symptoms reported Neurological: reports: no symptoms reported Psychiatric: reports: no symptoms reported Endocrine: reports: no symptoms reported Hematologic/Lymphatic: reports: no symptoms reported Allergic/Immunologic: reports: no symptoms reported All Other Systems: Reviewed and Negative Past History - Adult - PAST MEDICAL HISTORY-ADULT Review of Records: reports: Nursing Assessment Review, Medications Reviewed, Social history reviewed & non-contributory. Major Childhood Illnesses: reports: denies history Cardiovascular: reports: cardiac disease, HTN, hyperlipidemia Respiratory: reports: COPD Gastrointestinal: reports: denies history Obstetrical/Gynecological: reports: denies history Genitourinary: reports: denies history Musculoskeletal: reports: denies history Neurological: reports: dementia Endocrine/Immune: reports: Diabetes Other Conditions: reports: denies history - PRIOR SURGERIES/PROCEDURES Surgical/Procedure History: reports: none - IMMUNIZATION STATUS Childhood Immunizations: See Nurse Assessment Flu Vaccine: See Nurse Assessment - FAMILY HISTORY Family History: reviewed, not pertinent - SOCIAL HISTORY Smoking: cigarettes, less than 1 pack/day Provider spent 3-5 mins advising pt. on dangers of tobacco.: Discussed manners to quit use, and f/u contacts for add'l counseling. Substance Use: denies Living Situation: family Physical Exam-General - PHYSICAL EXAM-ADULT Initial Vital Signs Reviewed: Yes - CONSTITUTIONAL General Appearance: appears well, alert, no apparent distress - EYES Eyes: PERRL/EOMI, pink conjunctivae - HEAD, EARS, NOSE, MOUTH & THROAT HENMT: normocephalic/atraumatic, moist mucous membranes, normal ENT inspection, TMs normal, pharynx normal - NECK Neck: non-tender, full range of motion, supple, normal inspection - RESPIRATORY Respiratory: chest non-tender, lungs clear, normal breath sounds, no pleuratic chest pain, no respiratory distress, no accessory muscle use - CARDIOVASCULAR Cardiovascular: normal peripheral pulses, regular rate, rhythm, no edema, no gallop, no JVD, no murmur - GASTROINTESTINAL (ABDOMEN) Abdominal Exam: normal bowel sounds, soft, no organomegaly, no pulsatile mass, tenderness (generalized) - LYMPHATIC Lymphatic: no adenopathy - MUSCULOSKELETAL Back Exam: normal inspection, no CVA tenderness, no vertebral tenderness Extremity: normal range of motion, non-tender, no pedal edema, no calf tenderness, normal capillary refill - SKIN Integumentary: normal color, normal turgor, warm/dry - NEUROLOGIC Neurologic: grossly normal - PSYCHIATRIC Psych/Mental Status: normal mood/affect Progress - PLAN OF CARE/RESULTS Progress/Plan/Lab Results: Vital Signs - 8 hr 04/07/17 12:50 Temperature 98 F Pulse Rate 63 Respiratory Rate 16 Blood Pressure 146/72 O2 Sat by Pulse Oximetry 98 Orders Category Date Time Status Saline Loc NOW Care 11/21/16 13:13 Active ua [URINALYSIS PL W/POSS RFLX CULT] [URINALYSIS] Stat Lab 11/21/16 13:13 Uncollected 0.9% Sodium Chloride Inj [Ns] 1,000 ml Med 11/21/16 13:12 Active IV 999 mls/hr Morphine Med 11/21/16 13:13 Discontinued 4 mg IV NOW ONE Ondansetron [Zofran] Med 11/21/16 13:13 Discontinued 4 mg IV NOW ONE Laboratory Tests 11/21/16 14:00 Urine Source CLEAN CATCH Urine Color YELLOW Urine Turbidity CLEAR Urine pH 5.5 Ur Specific Jackson 1.025 Urine Protein 30 A Ur Glucose (Stick) 1000 A Ur Ketones (Stick) TRACE A Urine Blood NEGATIVE Urine Nitrite NEGATIVE Urine Bilirubin MODERATE A Urobilinogen Dipstick NORMAL Urine Leukocytes MODERATE A Urine WBC (Auto) 10-20 A Urine RBC (Auto) <10 U Epithel Cells (Auto) <10 Urine Bacteria (Auto) 3+ Laboratory Tests 11/21/16 11/21/16 11/21/16 13:40 13:40 13:40 WBC 5.13 RBC 3.94 L Hgb 11.4 L Hct 33.9 L MCV 86.0 MCH 28.9 MCHC 33.6 RDW Std Deviation 14.3 Plt Count 232 MPV 10.5 H Immature Gran % (Auto) 0.0 Neut % (Auto) 71.8 Lymph % (Auto) 10.1 L Walsh % (Auto) 10.7 H Eos % (Auto) 7.2 Baso % (Auto) 0.2 Immature Gran # (Auto) 0.00 Neut # (Auto) 3.68 Lymph # (Auto) 0.52 L Walsh # (Auto) 0.55 Eos # (Auto) 0.37 Baso # (Auto) 0.01 Sodium 135 L Potassium 4.1 Chloride 97 L Carbon Dioxide 22 L Anion Gap 16 BUN 9 Creatinine 0.8 Estimated GFR/1.73 m2 > 60 BUN/Creatinine Ratio 11 Glucose 253 H Calculated Osmolality 277 Calcium 9.3 Total Bilirubin 3.68 H AST 150 H ALT 91 H Alkaline Phosphatase 303 H Troponin T < 0.010 Total Protein 6.7 Albumin 3.0 L Globulin 3.7 Albumin/Globulin Ratio 0.8 Amylase 69 Lipase 151 H Urine Source Urine Color Urine Turbidity Urine pH Ur Specific Jackson Urine Protein Ur Glucose (Stick) Ur Ketones (Stick) Urine Blood Urine Nitrite Urine Bilirubin Urobilinogen Dipstick Urine Leukocytes Urine WBC (Auto) Urine RBC (Auto) U Epithel Cells (Auto) Urine Bacteria (Auto) 11/21/16 14:00 WBC RBC Hgb Hct MCV MCH MCHC RDW Std Deviation Plt Count MPV Immature Gran % (Auto) Neut % (Auto) Lymph % (Auto) Walsh % (Auto) Eos % (Auto) Baso % (Auto) Immature Gran # (Auto) Neut # (Auto) Lymph # (Auto) Walsh # (Auto) Eos # (Auto) Baso # (Auto) Sodium Potassium Chloride Carbon Dioxide Anion Gap BUN Creatinine Estimated GFR/1.73 m2 BUN/Creatinine Ratio Glucose Calculated Osmolality Calcium Total Bilirubin AST ALT Alkaline Phosphatase Troponin T Total Protein Albumin Globulin Albumin/Globulin Ratio Amylase Lipase Urine Source CLEAN CATCH Urine Color YELLOW Urine Turbidity CLEAR Urine pH 5.5 Ur Specific [place] 1.025 Urine Protein 30 A Ur Glucose (Stick) 1000 A Ur Ketones (Stick) TRACE A Urine Blood NEGATIVE Urine Nitrite NEGATIVE Urine Bilirubin MODERATE A Urobilinogen Dipstick NORMAL Urine Leukocytes MODERATE A Urine WBC (Auto) 10-20 A Urine RBC (Auto) <10 U Epithel Cells (Auto) <10 Urine Bacteria (Auto) 3+ Result Diagrams: 11/21/16 13:40 11/21/16 13:40 - REASSESSMENT Reassessment #1 Time Reassessed: 15:02 (Dr. Gray at bedside with Pt and Pt's son) Status: other (Pt's son states that he wants blood work now.) - EKG 1 Time of EKG reading by physician:: 17:15 EKG Read and Signed by:: Do Gray EKG Interpretation (*Must complete 3 of following elements*): Abnormal Rate: 82 Rhythm: normal sinus rhythm Comments: nonspecific T wave abnormality - CT/MRI 1 CT Study: Abdomen, Pelvis Impression: Abnormal CT Results: + PE; much worse pancreatic cancer, new liver mets - CONSULTS/PCP/HOSPITALIST Notification #1 *Consult/PCP/Hospitalist*: Jared Hill NP Time Discussed: 16:29 Reason/Comments: Dr. Gray consulted with Jared Hill about admit of PT Consult Disposition: Will see in ED #2 Consult: Dr. Morel Time Discussed: 17:26 (Dr. Morel accepted admit ) Reason/Comments: Dr. Gray consults with Dr. Morel about admit . Consult Disposition: Admit Departure - Departure Time of Disposition Decision: 16:23 DIAGNOSIS: Liver mass, Pleural effusion Chest pain Qualifiers: Chest pain type: unspecified Qualified Code(s): R07.9 - Chest pain, unspecified UTI (urinary tract infection) Qualifiers: Urinary tract infection type: site unspecified Hematuria presence: without hematuria Qualified Code(s): N39.0 - Urinary tract infection, site not specified Abdominal pain Qualifiers: Abdominal location: unspecified location Qualified Code(s): R10.9 - Unspecified abdominal pain Pancreatic cancer Qualifiers: Pancreatic malignancy location: unspecified Qualified Code(s): C25.9 - Malignant neoplasm of pancreas, unspecified Disposition: ADMITTED INPATIENT 09 Certified Medical Emergency: Emergent Condition: Stable Additional Freetext Instructions: ED Follow Up Instructions: You have been treated by a care provider in the Emergency Department. These instructions are being provided to you so you can have an understanding of how to care for yourself upon discharge. Upon discharge from the Emergency Department, you are responsible for making arrangements for follow-up care by a physician of your choice. Take all prescribed medications as directed. Return to the Emergency Department immediately for any new or worsening symptoms. You may call the Physician Referral phone number at [phone] to obtain a list of Physicians who are taking new patients. Referrals and Follow-Ups: Edil Hernandez MD [Primary Care Provider] - This chart was documented by the indicated scribe, (Oneida Kay Scribe) and accurately reflects the services I performed and decisions made by , Do Gray MD, as attested by the provider's signature.
[2016-11-21 15:12] LABS: MANUAL DIFF NEEDED? NO
[2016-11-21 15:20] LABS: BASO% 0.2 % (0.0-0.8); EOS# 0.37 X1000 (0.0-0.7); EOS% 7.2 % (0.0-10.0); HEMATOCRIT 33.9 % (37.0-47.0); HEMOGLOBIN 11.4 g/dL (12.0-16.0); LYMPH# 0.52 X1000 (1.2-3.4); LYMPH% 10.1 % (20.5-51.1); MCH 28.9 PG (27-31); MCHC 33.6 g/dL (33-37); MONO# 0.55 X1000 (0.11-0.59); MONO% 10.7 % (1.7-9.3); MPV 10.5 FL (7.4-10.4); NEUT% 71.8 % (42.2-75.2); PLT 232 X1000 (130-400); RBC 3.94 XMIL (4.2-5.4)
[2016-11-21 15:42] LABS: AGAP 16; ALKALINE PHOSPHATASE 303 U/L (32-104); AMYLASE 69 U/L (20-200); BUN 9 mg/dL (8-22); CALCIUM 9.3 mg/dL (8.8-10.2); CHLORIDE 97 mmol/L (98-107); COSMO 277; GOT 150 U/L (10-30); GPT 91 U/L (10-36); LIPASE 151 U/L (13-60); POTASSIUM 4.1 mmol/L (3.5-5.1); SODIUM 135 mmol/L (136-145); TCO2 22 mmol/L (25-35); TOTAL BILIRUBIN 3.68 mg/dL (0.20-1.00); TOTAL PROTEIN 6.7 g/dL (6.3-8.3)
[2016-11-21] MEDS ORDERED: XYLOCAINE-MPF 1% INJ ONE (15:49)
[2016-11-21] MEDS ORDERED: ROCEPHIN IM ONE (15:49)
--- NOTE | 2016-11-21 18:23 | Diag Imaging Result Document ---
PROCEDURE NAME: ABD/PELVIS/PULM ARTERIES - 11/21/2016 CT PULMONARY ANGIOGRAM WITH INTRAVENOUS CONTRAST: A CT dose reduction protocol was used. COMPARISON: None. FINDINGS: There is an acute pulmonary embolism in the right middle and lower lobar arteries and subsegmental branches. None on the left side. No adenopathy. Heart size is normal. The lungs are clear of infiltrate. Severe degenerative changes of the thoracic spine. No acute bony lesions. IMPRESSION: Acute pulmonary embolism in the right lung base. CT ABDOMEN AND PELVIS WITH INTRAVENOUS CONTRAST: A CT dose reduction protocol was used. COMPARISON: 10/30/2016. FINDINGS: The pancreatic head mass has significantly increased in size. This now measures about 3.3 x 2.5 cm. There is worsening duct dilation of the main pancreatic duct. There is some trace peripancreatic edema suggesting ongoing pancreatitis. Stable left adrenal mass. There are new masses in the liver that are very small, measuring up to about 1.3 cm maximally. No bowel obstruction or inflammation. Several tiny hypodense cysts throughout the liver are stable. Urinary bladder, uterus, and rectum are normal. Normal appendix. Degenerative changes throughout the spine. No acute bony lesions. IMPRESSION: Worsening spread of the pancreatic cancer with new liver metastases and increase in size of the pancreatic head mass. [facility]
--- NOTE | 2016-11-21 18:27 | HISTORY AND PHYSICAL ---
ONCOLOGIST: Dr. Rivera. CHIEF COMPLAINT: Chest pain and shortness of breath. HISTORY OF PRESENT ILLNESS: Mrs. Gomez is an 86-year-old female with a history of recently diagnosed pancreatic cancer, history of diabetes mellitus, hypertension, GERD and dementia who presents with 24 hours of chest pain, shortness of breath and anxiety. The patient's history of dementia precludes any history gathering from her, her son is at the bedside and is able answer questions. He states she was in her normal state of health until early yesterday she began complaining of shortness of breath and chest pain and anxiety. They went and saw Dr. Garcia who reported that she had indeed confirmed pancreatic cancer and they had a plan for treatment. However overnight her pain worsened and they came to the ER today. She denies any fevers or chills. There is no cough or congestion. There is mild abdominal pain but no vomiting, no lower extremity edema, no orthopnea. CT of the chest, abdomen and pelvis done in the ER shows considerable worsening of pancreatic cancer with new mets to the liver and also a PE on the right. Laboratory data shows mild anemia. Her LFTs are elevated and she has UTI. Lovenox has been started and she is now going to be admitted for further treatment and evaluation. PAST MEDICAL HISTORY: 1. Pancreatic cancer, now metastatic to the liver. 2. Hypertension. 3. Diabetes. 4. Dementia. 5. GERD. SOCIAL HISTORY: There is no tobacco, alcohol or drug use. REVIEW OF SYSTEMS: Ten-point review of systems was obtained and found to be negative with the exception of the HPI. PAST SURGICAL HISTORY: She has had a recent fine-needle aspiration otherwise none. FAMILY HISTORY: Noncontributory. HOME MEDICATIONS: Currently being compiled. ALLERGIES: No known drug allergies. PHYSICAL EXAMINATION: VITAL SIGNS: Blood pressure is 144/79, heart rate 63, respiratory rate 16, O2 saturation 98% room air, temperature is 98 degrees Fahrenheit. GENERAL: This is an elderly female lying in hospital bed, no acute distress. NEUROLOGIC: The patient is alert but confused. She follows commands without focal deficits. HEENT: Head is atraumatic, normocephalic. Pupils equal, round, reactive to light. Oral mucosa is moist. Trachea is midline. There is no JVD. CHEST: Clear to auscultation bilaterally. CV: Regular rate and rhythm. S1-S2 is noted. No murmurs, gallops, clicks, rubs. GI: Soft, nondistended, nontender. Bowel sounds positive. EXTREMITIES: Without edema, clubbing or cyanosis. Pulses palpable bilaterally. DIAGNOSTIC DATA: CTA of the chest shows PE and CT of the abdomen and pelvis shows worsening pancreatic head mass with now new metastatic lesions to the liver. WBC 5.13, hemoglobin 11.4, hematocrit 33.9, platelet count 232,000. Sodium 135, potassium 4.1, chloride 97, CO2 22, anion gap 16, BUN 9, creatinine 0.8, glucose 253, total bilirubin 3.6, AST 150, alkaline phosphatase 303, ALT 91, albumin 3, lipase 151. UA shows urinary tract infection. ASSESSMENT AND PLAN: 1. Acute pulmonary embolism: The patient will be started on Lovenox 1 mg/kg. We will add duo nebulizers around the clock and aggressive pulmonary toilet. 2. Newly diagnosis metastatic pancreatic cancer. Dr. Quintana has been consulted, we will defer any management to her. 3. Urinary tract infection, urine culture is pending and Rocephin has been initiated. 4. Diabetes mellitus: Will hold oral antidiabetics and add sliding scale insulin and pattern blood sugars. Her last hemoglobin A1c in July was 8.3. 5. Hypertension: Will continue home medicines once they have been reconciled. 6. Gastroesophageal reflux disease. We will add IV Protonix. 7. Deep vein thrombosis prophylaxis is covered with Lovenox. 8. Further recommendations to follow. Dictated by RUSTY Monge for Russ Villaseñor MD cc: RUSTY Monge MD [facility]
[2016-11-21] MEDS: LOVENOX SUBQ SCH (19:07)
[2016-11-21] MEDS: NS 1,000 ML IV SCH (19:07)
[2016-11-21] MEDS: DUONEB (A & A) INH SCH ×2 (19:55→23:41)
[2016-11-21] MEDS: COREG PO SCH (21:01)
[2016-11-21] MEDS: MIRALAX PO SCH (21:01)
[2016-11-21] MEDS: PERICOLACE PO SCH (21:01)
[2016-11-21] MEDS: HUMALOG SUBQ SCH (21:03)
[2016-11-21] MEDS: MORPHINE IV PRN (22:23)
[2016-11-22] MEDS: DUONEB (A & A) INH SCH ×6 (03:48→23:22)
[2016-11-22] MEDS: LOVENOX SUBQ SCH ×2 (06:45→20:08)
[2016-11-22] MEDS: HUMALOG SUBQ SCH ×2 (06:46→12:51)
[2016-11-22 07:51] LABS: HEMATOCRIT 31.4 % (37.0-47.0); HEMOGLOBIN 10.2 g/dL (12.0-16.0); MCH 28.9 PG (27-31); MCHC 32.5 g/dL (33-37); MPV 10.1 FL (7.4-10.4); RBC 3.53 XMIL (4.2-5.4)
[2016-11-22 07:55] LABS: AGAP 15; BUN 9 mg/dL (8-22); CALCIUM 8.4 mg/dL (8.8-10.2); CHLORIDE 101 mmol/L (98-107); COSMO 279; POTASSIUM 4.7 mmol/L (3.5-5.1); SODIUM 136 mmol/L (136-145); TCO2 20 mmol/L (25-35)
[2016-11-22] MEDS: APRESOLINE PO SCH ×3 (10:19→20:14)
[2016-11-22] MEDS: COREG PO SCH ×2 (10:19→20:14)
[2016-11-22] MEDS: LOTENSIN PO SCH (10:20)
[2016-11-22] MEDS: MIRALAX PO SCH ×2 (10:20→20:07)
[2016-11-22] MEDS: NORVASC PO SCH (10:20)
[2016-11-22] MEDS: PERICOLACE PO SCH ×2 (10:21→20:07)
[2016-11-22] MEDS: PRILOSEC PO SCH (10:21)
[2016-11-22] MEDS: MORPHINE IV PRN ×4 (13:06→18:55)
[2016-11-22] MEDS: CITRACAL + D PO SCH (13:07)
[2016-11-22] MEDS: NS 1,000 ML IV SCH (13:07)
--- NOTE | 2016-11-22 13:46 | CONSULTATION ---
DATE OF CONSULTATION: 11/22/2016 REQUESTING PHYSICIAN: Dr. Paredes REASON FOR CONSULTATION: The patient is known for pancreatic cancer. HISTORY OF PRESENT ILLNESS: Ms. Gomez is an 86-year-old female who is known to Dr. Rivera as she is currently being assessed and treated for pancreatic cancer, who presented to the emergency department complaining of 24 hours of chest pain, shortness of breath and anxiety. Scans were done, and the patient was found to have an acute PTE. Labs revealed the patient has a urinary tract infection as well. The patient is now admitted for close observation and for continuation of treatment. Per the patient's son, plans were for the patient to start treatment on this coming Thursday. The patient has dementia, and her history was mainly taken from the patient's son and the patient's chart. PAST MEDICAL HISTORY: 1. Pancreatic cancer. 2. Hypertension. 3. Diabetes mellitus. 4. Dementia. 5. GERD. PAST SURGICAL HISTORY: Recent FNA. SOCIAL HISTORY: The patient has a 50-pack year history. Denies any alcohol or drug use. FAMILY HISTORY: Negative for any malignancies or blood disorders. REVIEW OF SYSTEMS: As per the HPI, all other systems are negative or noncontributory. PHYSICAL EXAMINATION: Vital signs: Temperature is 97.4, heart rate 76, respirations 16, blood pressure 187/74, O2 saturation is 97% on room air. General: This is an female lying in the hospital bed. She is in no acute distress. She has family members by her side. HEENT: Head appears to be normocephalic and atraumatic. Pupils are equal, round and reactive. Ears, nose, and throat negative. Mouth: Oral mucosa is normal. Trachea is midline. Cardiovascular: S1 and S2 heard. No murmurs, gallops or rubs appreciated. Respiratory: Chest clear to auscultation bilaterally. Normal respiratory effort. Gastrointestinal: Abdomen is soft, nondistended. Positive bowel sounds. Musculoskeletal: No obvious bony abnormalities. Extremities: No cyanosis, clubbing or edema. Neurologic: The patient is alert. She is not agitated. DIAGNOSTIC DATA: White blood cells are 3.89, hemoglobin 10.2, hematocrit 31.4, platelets 196. Sodium 136, potassium 4.7, chloride 101, CO2 is 20, BUN is 9, creatinine 0.8, glucose 253. CT of abdomen and pelvis shows worsening spread of pancreatic cancer with new liver metastasis and increase in pancreatic head mass. CT of the chest shows an acute pulmonary embolism in the right lung base. ASSESSMENT AND PLAN: 1. Pancreatic cancer, now with a new liver metastasis. Plan was to start what sounds like chemotherapy and radiation on Thursday. Scans in the office system do not show any mention of the liver metastasis. The patient and family will rediscuss with Dr. Rivera on Thursday. 2. Acute pulmonary thromboembolism. The patient is currently on Lovenox 1 mg/kg q.12 hours. Continue this for now. Plan will be to transition to likely Xarelto at 15 mg b.i.d. for a total of 21 days and then transition to Xarelto 20 mg daily thereafter prior to her discharge. 3. Urinary tract infection. The patient is currently on Rocephin IV. Continue and follow culture and sensitivity and adjust antibiotics as needed. 4. Pain. She is on fentanyl and Dilaudid as well as [place] as an outpatient. She recently started the fentanyl. She is currently now on IV morphine, and her pain is well controlled. Continue to monitor and make further adjustments to her pain regimen as needed. 5. Hypertension. Per the primary team. She is currently on some blood pressure medications. Monitor closely. Thank you for consulting us on Ms. Gomez. While she is here at [facility], we will continue to follow along and adjust our treatment plan based on her hospital course. Dictated by JAIRON Pack for Quin Quintana MD cc: Quin Quintana MD
--- NOTE | 2016-11-22 14:20 | PROGRESS NOTE ---
DATE: 11/22/2016 SUBJECTIVE: The patient complains of abdominal pain. The patient does have severe dementia. She denies any nausea or vomiting. OBJECTIVE: Vital Signs: Temperature 97 degrees, blood pressure 107/74, heart rate 79, respirations 20, O2 saturations 97% on room air. General: This is an elderly female, lying in bed in no acute distress. Head: Normocephalic, atraumatic. Heart: S1, S2. Normal. Regular rate and rhythm. Lungs: Clear to auscultation bilaterally. No wheezing. No rales. Abdomen: Positive bowel sounds. Soft, nontender, nondistended. Extremities: No edema. No cyanosis. No calf tenderness. Neurologic: The patient is awake and alert. LABS: Lab work reveals white blood cell count 10.8, hemoglobin 10, hematocrit 31, platelets 196. Sodium 136, potassium 4.7, chloride 101, CO2 20, BUN 9, creatinine 0.8. ASSESSMENT AND PLAN: 1. Acute pulmonary embolism. Continue on full-dose Lovenox 2. Metastatic pancreatic cancer. Oncology has been consulted. 3. Accelerated hypertension. Continue on hydralazine, Coreg, amlodipine and Lotensin. 4. Uncontrolled insulin-dependent diabetes mellitus type 2. Continue on sliding scale insulin. 5. Dementia. Aware. 6. Urinary tract infection. Continue on IV antibiotic therapy. Urine culture is pending. cc: Eva Paredes MD [facility]TDD
[2016-11-22] MEDS: ZOFRAN IV PRN ×2 (14:29→18:55)
[2016-11-22] MEDS ORDERED: ROCEPHIN 1 GM/NS 1 GM/50 ML IVPB IV SCH (15:00)
[2016-11-22] MEDS: HUMULIN R SUBQ SCH ×2 (18:58→21:58)
[2016-11-23] MEDS: DUONEB (A & A) INH SCH ×6 (03:10→23:10)
[2016-11-23] MEDS: LOVENOX SUBQ SCH ×2 (05:58→17:39)
[2016-11-23] MEDS: HUMULIN R SUBQ SCH ×4 (05:59→21:03)
[2016-11-23] MEDS: MORPHINE IV PRN ×4 (06:16→19:41)
[2016-11-23 07:16] LABS: HEMATOCRIT 28.2 % (37.0-47.0); HEMOGLOBIN 9.3 g/dL (12.0-16.0); MCV 87.9 FL (81-99); MPV 10.1 FL (7.4-10.4); RBC 3.21 XMIL (4.2-5.4)
[2016-11-23 07:36] LABS: INR 1.15; PROTIME 12.2 Seconds (9.2-11.7)
[2016-11-23 07:44] LABS: AGAP 13; ALBUMIN 2.6 g/dL (3.5-5.0); ALKALINE PHOSPHATASE 262 U/L (32-104); BUN 7 mg/dL (8-22); CALCIUM 8.2 mg/dL (8.8-10.2); CHLORIDE 103 mmol/L (98-107); COSMO 281; GOT 155 U/L (10-30); GPT 102 U/L (10-36); POTASSIUM 3.6 mmol/L (3.5-5.1); SODIUM 138 mmol/L (136-145); TCO2 22 mmol/L (25-35); TOTAL BILIRUBIN 3.04 mg/dL (0.20-1.00); TOTAL PROTEIN 5.5 g/dL (6.3-8.3)
[2016-11-23] MEDS: COREG PO SCH ×2 (10:22→21:00)
[2016-11-23] MEDS: LOTENSIN PO SCH (10:22)
[2016-11-23] MEDS: PRILOSEC PO SCH (10:22)
[2016-11-23] MEDS: NORVASC PO SCH (10:23)
[2016-11-23] MEDS: APRESOLINE PO SCH ×3 (10:23→17:39)
[2016-11-23] MEDS: PERICOLACE PO SCH ×2 (10:26→21:00)
[2016-11-23] MEDS: MIRALAX PO SCH ×2 (10:26→21:02)
[2016-11-23] MEDS: NS 1,000 ML IV SCH (10:31)
[2016-11-23] MEDS ORDERED: VANCOMYCIN IV PER PHARMACY MISC SCH (12:30)
[2016-11-23] MEDS: CITRACAL + D PO SCH (14:10)
[2016-11-23] MEDS ORDERED: VANCOMYCIN 1,500 MG in NS 250 ML IV SCH (16:00)
--- NOTE | 2016-11-23 16:40 | PROGRESS NOTE ---
DATE: 11/23/2016 SUBJECTIVE: The patient is resting comfortably in bed. She does complain of some mild abdominal pain. OBJECTIVE: Vital Signs: Temperature 98.6 degrees, blood pressure 147/62, heart rate 83, respirations 20, O2 saturations 99% on room air. General: This is a elderly female lying in bed in no acute distress. Head: Normocephalic, atraumatic. Heart: S1, S2. Normal. Regular rate and rhythm. Lungs: Clear to auscultation bilaterally. Abdomen: Positive bowel sounds. Soft, nontender, nondistended. Extremities: No edema. No cyanosis. Neurologic: The patient is awake and alert. LABS: White blood cell count 3.8, hemoglobin 9.3, hematocrit 28, platelets 205,000. INR 1.1. Sodium 138, potassium 3.6, chloride 103, CO2 22, BUN 7, creatinine 0.8, glucose 193, AST 155, ALT 102, alkaline phosphatase 262, albumin 2.6, total protein 5.5. ASSESSMENT AND PLAN: 1. Acute pulmonary embolism. Continue on full dose Lovenox. 2. Metastatic pancreatic cancer. Management as per the oncologist. 3. Urinary tract infection. The urine culture is growing gram-positive cocci. Will switch the patient to vancomycin until the final culture results are available. 4. Alzheimer's dementia. Aware. 5. Protein calorie malnutrition. Will continue on Glucerna. 6. Hypertension. Continue on hydralazine, Coreg, benazepril and Norvasc. 7. Constipation. Will add a Dulcolax suppository to the patient's regimen. Continue on MiraLAX and Cele-Colace. cc: Eva Paredes MD
[2016-11-23] MEDS: DULCOLAX PR SCH (21:02)
[2016-11-24] MEDS: DUONEB (A & A) INH SCH ×6 (03:40→23:25)
[2016-11-24] MEDS: NS 1,000 ML IV SCH (06:21)
[2016-11-24] MEDS: HUMULIN R SUBQ SCH ×4 (06:21→22:40)
[2016-11-24] MEDS: LOVENOX SUBQ SCH (06:21)
[2016-11-24 06:59] LABS: HEMATOCRIT 27.7 % (37.0-47.0); HEMOGLOBIN 9.3 g/dL (12.0-16.0); MCH 29.2 PG (27-31); MCHC 33.6 g/dL (33-37); MCV 86.8 FL (81-99); MPV 10.6 FL (7.4-10.4); RBC 3.19 XMIL (4.2-5.4)
[2016-11-24 07:03] LABS: INR 1.11; PROTIME 11.7 Seconds (9.2-11.7)
[2016-11-24 07:18] LABS: AGAP 14; ALBUMIN 2.7 g/dL (3.5-5.0); ALKALINE PHOSPHATASE 289 U/L (32-104); BUN 4 mg/dL (8-22); CALCIUM 8.5 mg/dL (8.8-10.2); CHLORIDE 103 mmol/L (98-107); COSMO 278; GOT 207 U/L (10-30); GPT 148 U/L (10-36); POTASSIUM 3.8 mmol/L (3.5-5.1); SODIUM 138 mmol/L (136-145); TCO2 21 mmol/L (25-35); TOTAL PROTEIN 5.4 g/dL (6.3-8.3)
--- NOTE | 2016-11-24 07:31 | EKG Report ---
Test Performed on : 11/21/2016 5:15:54 PM Test Reason : No ORder in [place] Blood Pressure : / mmHG Vent. Rate : 082 BPM Atrial Rate : 082 BPM P-R Int : 142 ms QRS Dur : 076 ms QT Int : 380 ms P-R-T Axes : 063 008 043 degrees QTc Int : 443 ms Normal sinus rhythm. Nonspecific T wave abnormality Abnormal ECG When compared with ECG of 30-OCT-2016 20:23, premature atrial complexes. are no longer present Unconfirmed Result
[2016-11-24] MEDS: MIRALAX PO SCH ×2 (08:48→22:26)
[2016-11-24] MEDS: PERICOLACE PO SCH ×2 (08:49→20:02)
[2016-11-24] MEDS: PRILOSEC PO SCH (08:49)
[2016-11-24] MEDS: COREG PO SCH ×2 (08:49→20:01)
[2016-11-24] MEDS: NORVASC PO SCH (08:49)
[2016-11-24] MEDS: APRESOLINE PO SCH ×3 (08:50→16:56)
[2016-11-24] MEDS: LOTENSIN PO SCH (08:50)
[2016-11-24] MEDS: CITRACAL + D PO SCH (12:08)
[2016-11-24] MEDS: AMOXIL PO SCH ×2 (14:17→21:26)
--- NOTE | 2016-11-24 14:18 | PROGRESS NOTE ---
DATE: 11/24/2016 SUBJECTIVE: The patient has no focal complaints. OBJECTIVE: Vital signs: Blood pressure 146/66, heart rate of 81, respiratory 16, temperature 98.3 degrees. Cardiovascular: Regular rate and rhythm. Pulmonary: Bilateral breath sounds. Clear to auscultation. Gastrointestinal: Soft, nontender, nondistended. Bowel sounds are positive. LABORATORY DATA: Hemoglobin and hematocrit 9 and 27. Platelets of 210,000. White count 4, basic was unremarkable. AST and ALT were 207 and 148. T. bilirubin of 3.7 which has been pretty stable for the last several days. PROBLEM LIST: 1. Acute pulmonary embolism. I think we can transition her to Eliquis. Clinically, she is stable so I think we could probably to transition her to a Eliquis assuming she can afford that medication. Otherwise we will have to transition her to Coumadin. She has hypercoagulable state in the setting of metastatic pancreatic cancer. 2. Metastatic pancreatic cancer. She is waiting for input from Dr. Garcia about treatment options. Metastatic cancer is a new diagnosis apparently. She has significant pain at baseline associated. 3. Enterococcus faecalis urinary tract infection sensitive to ampicillin and Levaquin with actually pretty good SOCRATES for the Levaquin. We will place her on amoxicillin. Clinically, she has stabilized, had previously been on the vancomycin. 4. Hypertension appears to be controlled. DISPOSITION: I think we can probably start getting her up. Apparently pain control was an issue with this patient although in the bed today a she really had no focal complaints. She seemed comfortable. She is on morphine but no other pain medication. cc: Kalen Carmen MD
[2016-11-24] MEDS ORDERED: DURAGESIC 12 MICROGM/HR PATCH SCH (15:27)
[2016-11-24] MEDS ORDERED: DURAGESIC 12 MICROGM/HR PATCH TD SCH (15:30)
[2016-11-24] MEDS: MORPHINE IV PRN (19:59)
[2016-11-24] MEDS: ELIQUIS PO SCH (20:02)
[2016-11-24] MEDS ORDERED: ELIQUIS PO SCH (21:00)
[2016-11-24] MEDS: DULCOLAX PR SCH (22:25)
[2016-11-25] MEDS: DUONEB (A & A) INH SCH ×6 (03:47→23:11)
[2016-11-25] MEDS: AMOXIL PO SCH ×3 (05:52→20:41)
[2016-11-25] MEDS: HUMULIN R SUBQ SCH ×4 (06:08→20:42)
[2016-11-25] MEDS: NS 1,000 ML IV SCH ×2 (06:08→09:51)
[2016-11-25 07:47] LABS: AGAP 15; ALBUMIN 2.6 g/dL (3.5-5.0); ALKALINE PHOSPHATASE 288 U/L (32-104); BUN 3 mg/dL (8-22); CALCIUM 8.2 mg/dL (8.8-10.2); CHLORIDE 103 mmol/L (98-107); COSMO 278; GOT 194 U/L (10-30); GPT 160 U/L (10-36); POTASSIUM 3.5 mmol/L (3.5-5.1); SODIUM 140 mmol/L (136-145); TCO2 22 mmol/L (25-35); TOTAL BILIRUBIN 3.68 mg/dL (0.20-1.00); TOTAL PROTEIN 5.3 g/dL (6.3-8.3)
[2016-11-25] MEDS: NORVASC PO SCH (08:06)
[2016-11-25] MEDS: APRESOLINE PO SCH ×3 (08:06→16:31)
[2016-11-25] MEDS: LOTENSIN PO SCH (08:06)
[2016-11-25] MEDS: COREG PO SCH ×2 (08:06→20:41)
[2016-11-25] MEDS: PRILOSEC PO SCH (08:06)
[2016-11-25] MEDS: PERICOLACE PO SCH ×2 (08:07→20:41)
[2016-11-25] MEDS: MIRALAX PO SCH ×2 (08:07→20:42)
[2016-11-25] MEDS: ELIQUIS PO SCH ×2 (08:07→20:41)
[2016-11-25] MEDS: CITRACAL + D PO SCH (11:23)
[2016-11-25] MEDS: NORCO-7.5 PO PRN ×2 (11:27→17:50)
--- NOTE | 2016-11-25 13:17 | PROGRESS NOTE ---
DATE: 11/25/2016 SUBJECTIVE: Patient has no focal complaints. She seems pretty bright. No shortness of breath. No major complaints. OBJECTIVE: Vital Signs: Blood pressure 160/59, heart rate of 85, respiratory rate 16, temperature 98.5 degrees. Cardiovascular: Regular rate and rhythm. Pulmonary: Bilateral breath sounds. Clear to auscultation. Gastrointestinal: Soft, nontender, and nondistended. Bowel sounds are positive. PROBLEM LIST: 1. Pulmonary embolism. We have transitioned her to [facility] and will continue to follow. 2. Metastatic pancreatic cancer. This is a new diagnosis. Dr. Garcia is discussing with the family about palliative chemotherapy versus hospice. 3. Enterococcus urinary tract infection. We will continue amoxicillin and follow. 4. Hypertension appears to be stable. DISPOSITION: Home possibly in next 1-2 days, possibly with hospice versus palliative care. We will continue to follow closely. cc: Kalen Carmen MD
[2016-11-25] MEDS: MORPHINE IV PRN (20:41)
[2016-11-25] MEDS: DULCOLAX PR SCH (20:45)
[2016-11-26] MEDS: DUONEB (A & A) INH SCH ×6 (03:51→22:58)
[2016-11-26] MEDS: NS 1,000 ML IV SCH ×3 (04:57→21:13)
[2016-11-26] MEDS: AMOXIL PO SCH ×3 (04:57→21:14)
[2016-11-26] MEDS: HUMULIN R SUBQ SCH ×4 (06:02→16:30)
[2016-11-26 06:31] LABS: HEMOGLOBIN 10.1 g/dL (12.0-16.0); MCH 28.9 PG (27-31); MCHC 33.7 g/dL (33-37); MCV 85.7 FL (81-99); MPV 10.5 FL (7.4-10.4); RBC 3.5 XMIL (4.2-5.4)
[2016-11-26 06:52] LABS: AGAP 12; ALBUMIN 2.7 g/dL (3.5-5.0); ALKALINE PHOSPHATASE 314 U/L (32-104); BUN 3 mg/dL (8-22); CALCIUM 8.3 mg/dL (8.8-10.2); CHLORIDE 100 mmol/L (98-107); COSMO 276; GOT 137 U/L (10-30); GPT 158 U/L (10-36); POTASSIUM 3.8 mmol/L (3.5-5.1); SODIUM 138 mmol/L (136-145); TCO2 26 mmol/L (25-35); TOTAL BILIRUBIN 3.83 mg/dL (0.20-1.00); TOTAL PROTEIN 5.8 g/dL (6.3-8.3)
[2016-11-26] MEDS: NORVASC PO SCH (08:32)
[2016-11-26] MEDS: ELIQUIS PO SCH ×2 (08:32→21:15)
[2016-11-26] MEDS: PERICOLACE PO SCH ×2 (08:32→21:15)
[2016-11-26] MEDS: COREG PO SCH ×2 (08:32→21:15)
[2016-11-26] MEDS: PRILOSEC PO SCH (08:32)
[2016-11-26] MEDS: APRESOLINE PO SCH ×3 (08:33→16:28)
[2016-11-26] MEDS: LOTENSIN PO SCH (08:33)
[2016-11-26] MEDS: MIRALAX PO SCH ×2 (08:34→21:12)
[2016-11-26] MEDS ORDERED: HUMULIN R IV ONE (11:39)
[2016-11-26] MEDS ORDERED: GLUCOPHAGE PO SCH (12:00)
[2016-11-26] MEDS: GLUCOTROL XL PO SCH (12:05)
[2016-11-26] MEDS: CITRACAL + D PO SCH (12:10)
--- NOTE | 2016-11-26 14:50 | PROGRESS NOTE ---
DATE: 11/26/2016 SUBJECTIVE: The patient has no focal complaints. Does not feel as well as she did yesterday. OBJECTIVE: Blood pressure 136/53, heart rate 90, respiratory 16, temperature 97.7 degrees.General: A well-developed female, in no acute distress. Head: Normocephalic, atraumatic. Eyes: Pupils equal, round, reactive to light. Extraocular movements were intact. PROBLEM LIST: 1. PE. She is on Eliquis. 2. Diabetes. She is on glipizide and metformin and we will continue to follow. She has become more hyperglycemic. 3. UTI enterococcus. She is on amoxicillin. We will continue to monitor. 4. Hypertension, appears to be stable. 5. Metastatic pancreatic cancer. We are waiting for hematology/oncology and will continue to follow. I am planning possibly for discharge versus hospice care. We will continue to follow. cc: Kalen Carmen MD
[2016-11-26] MEDS: NORCO-7.5 PO PRN ×2 (15:36→21:14)
[2016-11-26] MEDS: GLUCOPHAGE PO SCH (16:29)
--- NOTE | 2016-11-26 18:15 | PALLIATIVE CARE CONSULTATION ---
DATE: 11/26/2016 REQUESTING PHYSICIAN: Kalen Carmen MD REASON FOR CONSULTATION: Goals of care. HISTORY OF PRESENT ILLNESS: This is an 86-year-old female with a past medical history of recently diagnosed pancreatic cancer, diabetes mellitus, hypertension, gastroesophageal reflux disease and dementia. She was most recently admitted on 11/21/2016 after presenting to the emergency department with complaints of chest pain, shortness of breath, anxiety, and abdominal pain. The son states that she complained of abdominal pain on the day prior to admission and she was seen in Dr. Rivera's office and given IV fluids and IV pain medicine. However, the pain continued to worsen and that was why she was brought to the ER. While in the ER, a CT scan of the chest, abdomen and pelvis revealed worsening pancreatic cancer with new metastasis to the liver and also a PE to the right. UA also revealed a urinary tract infection. Currently, Ms. Gomez is lying in the hospital bed sleeping without any signs of distress. Her two sons and grandson are at the bedside. The Palliative Care Team was consulted to assist with goals of care. REVIEW OF SYSTEMS: Twelve point review of systems has been conducted and found negative except those mentioned in the HPI. PAST MEDICAL HISTORY: 1. Pancreatic cancer with metastasis to the liver. 2. Hypertension. 3. Diabetes mellitus. 4. Gastroesophageal reflux disease. 5. Dementia. SOCIAL HISTORY: Prior to this admission, Ms. Gomez lived at home. She did require some assistance with her activities of daily living. Alcohol, tobacco and drug use have been denied. She has 2 sons who are very attentive to her care. FAMILY HISTORY: None pertinent. PHYSICAL EXAMINATION: General: This is an elderly female who does not appear to be in any acute distress. HEENT: Atraumatic, normocephalic. Neck: Trachea is midline. Cardiovascular: Normal S1, S2. Pulmonary: Lung sounds are diminished. Respirations are nonlabored. Abdomen: Soft. Bowel sounds are active. Extremities: Pulses are palpable. IMPRESSION: This is an 86-year-old female with a past medical history as listed above in the HPI. I met with the patient, her 2 sons and grandson and discussed goals of care. As previously mentioned, Ms. Gomez was asleep on my arrival. She does arouse easily and denies pain and shortness of breath. However, she does not answer any other questions and quickly falls asleep. Her two son mentioned that they are waiting for Dr. Rivera to discuss in any further treatment options considering the new finding of liver metastasis. Home options, including home health, outpatient palliative care and hospice were discussed. Her son stated that she has a power of attorney at law and advanced directive. Currently, Ms. Gomez is a Do Not Resuscitate level 1. The son states that they shared the decision in the event that Ms. Gomez is not able to make her own decisions. Her son states that Ms. Gomez has had a 40 pound weight loss over the last 6 months and she has become weaker, especially within the last 5-6 days. They state that she still ambulatory to the bathroom, but appears to be sleeping more with a very poor appetite. It appears that her palliative performance scale is 40% at this time. We will await direction from Oncology to help assist with any discharge plans as needed. The Palliative Care Team will continue to follow. Dictated by RUSTY Barba for Rogelio Lucero MD cc: RUSTY Barba MD
[2016-11-26] MEDS: DULCOLAX PR SCH (21:15)
[2016-11-27] MEDS: DUONEB (A & A) INH SCH ×6 (02:37→22:57)
[2016-11-27 06:50] LABS: HEMATOCRIT 27.9 % (37.0-47.0); HEMOGLOBIN 9.6 g/dL (12.0-16.0); MCHC 34.4 g/dL (33-37); MCV 84.3 FL (81-99); MPV 10.4 FL (7.4-10.4); RBC 3.31 XMIL (4.2-5.4)
[2016-11-27 07:12] LABS: AGAP 12; BUN 3 mg/dL (8-22); CHLORIDE 103 mmol/L (98-107); COSMO 274; POTASSIUM 3.7 mmol/L (3.5-5.1); SODIUM 139 mmol/L (136-145); TCO2 24 mmol/L (25-35)
[2016-11-27] MEDS: HUMULIN R SUBQ SCH ×5 (07:33→21:26)
[2016-11-27] MEDS: AMOXIL PO SCH ×2 (09:55→17:28)
[2016-11-27] MEDS: MIRALAX PO SCH ×2 (09:55→20:33)
[2016-11-27] MEDS: APRESOLINE PO SCH ×3 (09:56→17:28)
[2016-11-27] MEDS: NORVASC PO SCH (09:56)
[2016-11-27] MEDS: GLUCOTROL XL PO SCH (09:56)
[2016-11-27] MEDS: GLUCOPHAGE PO SCH ×2 (09:56→17:28)
[2016-11-27] MEDS: COREG PO SCH ×2 (09:56→20:32)
[2016-11-27] MEDS: PRILOSEC PO SCH (09:56)
[2016-11-27] MEDS: LOTENSIN PO SCH (09:56)
[2016-11-27] MEDS: ELIQUIS PO SCH ×2 (09:57→20:32)
[2016-11-27] MEDS: PERICOLACE PO SCH ×2 (09:57→20:32)
[2016-11-27] MEDS: NS 1,000 ML IV SCH ×2 (10:54→19:03)
[2016-11-27] MEDS ORDERED: KLONOPIN PO PRN (12:13)
[2016-11-27] MEDS ORDERED: NORCO-10 PO PRN (12:14)
--- NOTE | 2016-11-27 12:38 | PROGRESS NOTE ---
DATE: 11/27/2016 SUBJECTIVE: Patient has no focal complaints. OBJECTIVE: Vital signs: Blood pressure was 161/60, heart rate 90, respiratory rate 16, temperature 99 degrees, 96% on room air. Cardiovascular: Regular rate and rhythm. Pulmonary: Bilateral breath sounds. Clear to auscultation. Gastrointestinal: Soft, nontender, nondistended. Bowel sounds are positive. PROBLEM LIST: 1. Metastatic pancreatic cancer. Per family, she is still in a lot of pain. She is just not doing well. She has nausea and has very poor appetite. 2. Pulmonary embolism. She is on Eliquis. We will discuss with Dr. Rivera about continuing that. We discussed previously that if she was going to go hospice full blown we would likely not continue that terminal supervisor. Will make that decision at discharge finally. 3. Urinary tract infection. She is on amoxicillin. Enterococcal urinary tract infection sensitive to ampicillin. DISPOSITION: It looks like family and patient have decided on hospice. A son got upset with me unfortunately because I discussed with patient about her metastatic disease and apparently she is not aware of that, and he is worried about the effects on her psyche. I think she has significant dementia so may not be able to process things well, so we will discuss with the main family members. I will put in some anxiolytic medication in case she gets confused. It sounds like plan is for hospice at home. I appreciate Palliative Care Service. I have discussed previously with Dr. Rivera, and he will reevaluate the patient, talk to the family again today, that we were leaning towards hospice in any case and palliative care, so working on setting that up and hopefully discharge home tomorrow if stable. Her other medical issues which are active are not as much concern. Her sugars have improved with initiation of her medication. Her diabetes is not well controlled, but in the setting of metastatic pancreatic cancer, that is probably not a high priority for control. So we will continue to follow. Anticipate discharge. cc: Kalen Carmen MD
[2016-11-27] MEDS ORDERED: DURAGESIC 25 MICROGM/HR PATCH TD SCH (13:00)
--- NOTE | 2016-11-27 13:21 | PALLIATIVE CARE PROGRESS NOTE ---
DATE: 11/27/2016 SUBJECTIVE: Ms. Gomez was sleeping on my arrival, but does arouse easily. She has periods of confusion but denies pain, dyspnea and nausea. She does not show any nonverbal signs and symptoms of pain or discomfort. OBJECTIVE: General: This is an 86-year-old female who does not show any signs of distress. HEENT: Atraumatic, normocephalic. Cardiovascular: Regular rate and rhythm. Pulmonary: Lung sounds are clear. Respirations are nonlabored. Abdomen: Soft. Bowel sounds are active. Extremities: Pulses are palpable. ASSESSMENT AND PLAN: The son states that he and his brother have talked and would like to take their mother home with hospice services. A hospice consult order will be placed. As previously mentioned, Ms. Gomez does not come have any acute complaints. She does seem quite confused and is not able the answer some of my questions. Ms. Gomez is a DNR level 1. The palliative care team will continue to follow. Dictated by RUSTY Barba for Rogelio Lucero MD cc: RUSTY Barba MD
[2016-11-27] MEDS: CITRACAL + D PO SCH (14:58)
[2016-11-27] MEDS: DULCOLAX PR SCH (20:33)
[2016-11-28] MEDS: AMOXIL PO SCH ×2 (01:29→09:08)
[2016-11-28] MEDS: DUONEB (A & A) INH SCH ×3 (03:07→11:12)
[2016-11-28] MEDS: HUMULIN R SUBQ SCH ×2 (06:21→11:43)
[2016-11-28] MEDS: NS 1,000 ML IV SCH (06:22)
[2016-11-28] MEDS: PERICOLACE PO SCH (09:08)
[2016-11-28] MEDS: GLUCOPHAGE PO SCH (09:08)
[2016-11-28] MEDS: LOTENSIN PO SCH (09:08)
[2016-11-28] MEDS: GLUCOTROL XL PO SCH (09:08)
[2016-11-28] MEDS: COREG PO SCH (09:08)
[2016-11-28] MEDS: ELIQUIS PO SCH (09:08)
[2016-11-28] MEDS: APRESOLINE PO SCH ×2 (09:08→12:05)
[2016-11-28] MEDS: PRILOSEC PO SCH (09:08)
[2016-11-28] MEDS: NORVASC PO SCH (09:08)
[2016-11-28] MEDS: MIRALAX PO SCH (09:09)
[2016-11-28] MEDS: CITRACAL + D PO SCH (12:05)
--- NOTE | 2016-11-28 12:20 | Extremity Venous Study ---
PROCEDURE NAME: Venous U/S Bilateral Legs - 11/24/2016 STUDY: Bilateral lower extremity venous images. REFERRING PHYSICIAN: Kalen Carmen MD INTERPRETING PHYSICIAN: Librado Schulte MD [place]EE SUPERINTENDENT: [place]. INDICATION: The patient has edema in the legs. FINDINGS: Bilateral lower extremity venous images accomplished. The common femoral, superficial femoral, deep femoral, popliteal, posterior tibial, peroneal, and greater saphenous veins are imaged bilaterally. The Doppler is used to evaluate the veins for spontaneity, phasicity, respiratory excursion, and distal augmentation. All veins are compressible. No intraluminal clot is seen. INTERPRETATION: No evidence of deep or superficial venous thrombosis in either lower extremity of the veins identified. cc: MD Kalen Dobbins MD
--- NOTE | 2016-11-28 13:29 | PALLIATIVE CARE PROGRESS NOTE ---
DATE: 11/28/2016 PALLIATIVE CARE PROGRESS NOTE SUBJECTIVE: Ms. Gomez is awake and alert, sitting up in the hospital bed. She has no acute complaints. OBJECTIVE: General: This is an 86-year-old female who does not show any signs and symptoms of distress. HEENT: Atraumatic, normocephalic. Neck: Trachea is midline. Cardiovascular: Regular rate and rhythm. Pulmonary: Lung sounds are clear. Respirations are nonlabored. Abdomen: Soft. Bowel sounds are active. Extremities: Pulses are palpable. ASSESSMENT AND PLAN: As previously mentioned, Ms. Gomez has no acute complaints today. Plan remains that Ms. Gomez will be discharged today with home hospice services. Her son is at bedside and does not have any questions about those services. Ms. Gomez is a do not resuscitate (DNR) level 1. Palliative Performance Scale appears to be 40%. The Palliative Care team will continue to follow. Dictated by RUSTY Barba for Rogelio Lucero MD cc: RUSTY Barba MD
[2016-11-28] MEDS: ZOFRAN IV PRN (14:09)
[2016-11-28] MEDS: MORPHINE IV PRN (14:09)
[2016-11-28 14:22] VITALS: BP 157/64
--- NOTE | 2016-11-28 18:12 | DISCHARGE SUMMARY ---
ADMISSION DATE: 11/21/2016 DISCHARGE DATE: 11/28/2016 DISCHARGE DIAGNOSES: 1. Metastatic pancreatic cancer. 2. Bilateral pulmonary embolism. 3. Enterococcal urinary tract infection. HOSPITAL COURSE: The patient was admitted on 11/21/2016 with a PE. She was placed on Lovenox. She was found to have a new diagnosis of metastatic pancreatic cancer. Dr. Quintana and Dr. Rivera were consulted. Her lower extremity Doppler showed no DVT. She clinically improved and was transitioned to p.o. Eliquis. She did have issues while she was here with hyperglycemia, so her medications were adjusted. Plan was to likely discharge with Hospice. Dr. Rivera discussed with the patient's family and agreed to pursue Hospice care. We also had Palliative Care consult while she was here, and they assisted greatly in transitioning her to Hospice. DISCHARGE MEDICATIONS: Norvasc 10 daily, Eliquis 5 b.i.d., Lotensin 20 daily, Caltrate daily, Coreg 25 b.i.d., fentanyl patch was increased to 25 q.72, Glucotrol 10 daily, hydralazine 50 daily, Glucophage was increased to 1 g b.i.d., Prilosec 20 daily, OxyIR 5 q.3 p.r.n. pain, MiraLAX 17 b.i.d. and Senokot. DISCHARGE CONDITION: Stable. She is going to be set up with outpatient Hospice with [facility]. This was a 35 minute discharge. Refer to Dr. Rivera. cc: Kalen Carmen MD
== END 2016-11-28 15:58 | disposition hospice, home (50) ==
LOC: ED 12:46 → 3N 18:22 → SUATTDRO 18:22
PROVIDERS: ATTEND Internal Medicine